=== PATIENT | female | born 1990 | race Caucasian/White ===

== ENCOUNTER → 2016-06-26 | Outpatient (CLI) | payer OTHER ==
[~2016-06-26] MED LIST: CIPR-225 PO; DOCU-143 PO; HYDR-3812 PO; METH20TA34 PO; METR500T PO
--- OUTSIDE RECORDS SUMMARY | 2016-06-26 12:04 | XMS REPORT ---
Author Author JP SAINI Organization [employer] Address Unknown Phone Unavailable Care Team Providers Care Road Inspector Name Role Phone JP SAINI CP Unavailable Allergies No Known Allergies Problems Problem Type Condition Code Onset Dates Condition Status Problem Sleep disorder, unspecified G47.9 Active Problem Oral contraceptive pill surveillance Z30.41 Active Problem BMI 32.0-32.9,adult Z68.32 Active Problem Family history of diabetes mellitus Z83.3 Active Problem Counseling for control, oral contraceptives Z30.9 Active Problem Other malaise R53.81 Active Problem History of genital warts Z86.19 Active Problem 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
--- NOTE | 2016-06-26 14:11 | Diagnostic Imaging Report ---
INDICATION: Irregular menstrual cycle. TECHNIQUE: Multiple real time chun scale sonographic images were obtained of the pelvis transabdominally and endovaginally. CORRELATION STUDY: None. FINDINGS: UTERUS/ENDOMETRIUM: Uterus measures 7.8 x 4.9 x 4.4 cm. The uterus has an unremarkable appearance. Endometrium is abnormally thickened even for a premenopausal patient at some areas greater than 2 cm. No significant increased vascularity. RIGHT OVARY: Not visualized, likely obscured by bowel. LEFT OVARY: 2.5 x 2.2 x 3.5 cm. Left ovary appearing unremarkable. Color flow is demonstrated to the left ovary. Trace free fluid in the cul-de-sac. IMPRESSION: 1. Endometrium is abnormally thickened. Etiology is indeterminate. Possibility of underlying polyp, hyperplasia, or even carcinoma should be excluded. Followup evaluation recommended. 2. Nonvisualization of the right ovary. Left ovary appearing unremarkable. Dictated by: Dictated on workstation # [id number]
== END ==
LOC: RAD 12:02
PROVIDERS: ATTEND Nurse Practitioner Family
DX: N92.6 Irregular menstruation, unspecified (principal)
CPT/HCPCS: 76830; 76856

== ENCOUNTER 2016-07-07 16:23 | Emergency (ER) | payer OTHER ==
[~2016-07-07] VITALS: Ht 182.9 cm; Wt 104.3 kg
--- NOTE | 2016-07-07 17:07 | ED Integumentary General ---
General Chief Complaint: Skin/Wound Problems Stated Complaint: POSS SPIDER BITE ON BACK Nursing Triage Note: Ambulatory to ED 8 with reports of possible wound/abscess to superior coccyx since Friday. Source: patient Exam Limitations: no limitations History of Present Illness Time seen by provider: 17:02 Initial Comments The patient is a 25-year-old white female who presents with the complaint of a painful and increasing in size nodule to the left side of the superior gluteal crease. This is been noted for about a week but has clearly increased in size and tenderness since Friday. Timing/Duration: week, getting worse Severity: mild Possible Cause: no cause identified Allergies and Home Medications Allergies Coded Allergies: Penicillins (Unverified Allergy, Unknown, 07/07/16) Constitutional: see HPI EENTM: no symptoms reported Respiratory: no symptoms reported Cardiovascular: no symptoms reported Gastrointestinal: no symptoms reported Genitourinary: no symptoms reported Musculoskeletal: no symptoms reported Skin: lesions Psychiatric/Neurological: No Symptoms Reported Endocrine: No Symptoms Reported Hematologic/Lymphatic: No Symptoms Reported Past Zykhslt-Cqclpp-Hrsuqk Hx Patient Social History Alcohol Use: Occasionally Uses Recreational Drug Use: No Smoking Status: Never a Smoker Recent Foreign Travel: No Contact w/Someone Who Travel: No Recent Infectious Disease Expo: No Recent Hopitalizations: No Physical Abuse Screen: No Sexual Abuse: No Immunizations Up To Date Tetanus Booster (TDap): Less than 5yrs PED Vaccines UTD: Yes Date of Influenza Vaccine: Jun 01, 2016 Seasonal Allergies Seasonal Allergies: No Surgeries HX Surgeries: No Respiratory Hx Respiratory Disorders: No Cardiovascular Hx Cardiac Disorders: No Neurological Hx Neurological Disorders: No Reproductive System Hx Reproductive Disorders: No Genitourinary Hx Genitourinary Disorders: No Gastrointestinal Hx Gastrointestinal Disorders: No Musculoskeletal Hx Musculoskeletal Disorders: No Endocrine Hx Endocrine Disorders: No HEENT HX ENT Disorders: No Cancer Hx Cancer: No Psychosocial Hx Psychiatric Problems: Yes Behavioral Health Disorders: ADD/ADHD Integumentary HX Skin/Integumentary Disorder: No Blood Transfusions Hx Blood Disorders: No Physical Exam Vital Signs Vital Sign - Last 12Hours 07/07/16 16:30 Temp 98.0 Pulse 89 Resp 18 B/P 137/92 Pulse Ox 97 O2 Delivery Room Air Capillary Refill : Less Than 3 Seconds General Appearance: WD/WN Cardiovascular: normal peripheral pulses regular rate, rhythm no edema no gallop no JVD no murmur Respiratory: chest non-tender lungs clear normal breath sounds no respiratory distress no accessory muscle use Comments There is an approximate 2 cm globally and elastic lesion which is tender to palpation in the left aspect of the superior gluteal crease Progress/Results/Core Measures Results/Orders Vital Signs/I&O Vital Sign - Last 12Hours 07/07/16 16:30 Temp 98.0 Pulse 89 Resp 18 B/P 137/92 Pulse Ox 97 O2 Delivery Room Air Blood Pressure Mean: 107 Departure Impression Impression: Primary Impression: pilonidal cyst Disposition: HOME, SELF-CARE Condition: Stable/Unchanged Departure-Patient Inst. Decision time for Depature: 17:05 Referrals: [facility] (PCP/Family) Primary Care Physician Patient Instructions: Pilonidal Cyst, Skin Schulte (DC) Add. Discharge Instructions: All discharge instructions reviewed with patient and/or family. Voiced understanding. An extra pillow or gel doughnut is useful for comfort. Soaking in a hot bathtub can be useful as well See surgeon of your choice for excision PETER STILL MD Jul 07, 2016 17:07
[2016-07-07 17:21] VITALS: BP 137/92
[2016-07-08] MEDS ORDERED: METR500T PO (09:16)
[2016-07-08] MEDS ORDERED: CIPR-225 PO (09:16)
[2016-07-08] MEDS ORDERED: HYDR-3812 PO (09:17)
[2016-07-25] MEDS ORDERED: HYDR-3812 PO (09:45)
[2016-07-25] MEDS ORDERED: DOCU-143 PO (09:45)
== END 2016-07-07 17:21 | disposition home or self-care (01) ==
LOC: EDUNIT# 16:23 → ER 16:25
DX: L05.01 Pilonidal cyst with abscess (principal)
CPT/HCPCS: 99281

== ENCOUNTER 2016-07-08 07:07 | Emergency (ER) | payer OTHER ==
[~2016-07-08] VITALS: Ht 182.9 cm; Wt 104.3 kg
[2016-07-08] MEDS ORDERED: LIDOCAINE/EPI 1%-1:100,000 (XYLOCAINE) 20ML INJ ONE (07:45)
[2016-07-08] MEDS ORDERED: KETOROLAC 30 MG/ML VIAL IVP ONE (07:45)
[2016-07-08] MEDS ORDERED: fentaNYL INJECTION 100 MCG/2 ML AMP IVP ONE (07:45)
--- NOTE | 2016-07-08 08:27 | ED General ---
General Chief Complaint: Skin/Wound Problems Stated Complaint: PILONIDAL CYST Nursing Triage Note: PT CO OF PILONIDAL CYST, PT HAS ALOT OF PAIN. Nursing Sepsis Screen: No Definite Risk Source of Information: Patient Exam Limitations: No Limitations History of Present Illness Time Seen by Provider: 07:25 Initial Comments This 25-year-old young lady presents to the emergency room with a pilonidal cyst. She was seen yesterday and was advised to seek referral to a surgeon. She was not started on antibiotics yesterday as the cyst was not felt to be infected. However, today it is obviously infected. Symptoms have worsened. There is erythema and a large area of fluctuation. She reports pain and size has worsened since yesterday as well. No fever. Allergies and Home Medications Allergies Coded Allergies: Penicillins (Unverified Allergy, Unknown, 07/07/16) Home Medications Ciprofloxacin HCl 500 Mg Tablet #20 500 MG PO BID Prescribed by: JOHNNY GAVIN on 07/08/16 0916 Hydrocodone/Acetaminophen 1 Each Tablet #10 1 EACH PO Q4H PRN PRN PAIN Prescribed by: JOHNNY GAVIN on 07/08/16 0917 Metronidazole 500 Mg Tablet #20 500 MG PO BID Prescribed by: JOHNNY GAVIN on 07/08/16 0916 Constitutional: no symptoms reported EENTM: no symptoms reported Respiratory: no symptoms reported Cardiovascular: no symptoms reported Gastrointestinal: no symptoms reported Genitourinary: no symptoms reported Musculoskeletal: no symptoms reported Skin: see HPI Psychiatric/Neurological: No Symptoms Reported Hematologic/Lymphatic: No Symptoms Reported Past Nrfrvqk-Qpbgru-Elyylh Hx Patient Social History Alcohol Use: Denies Use Recreational Drug Use: No Smoking Status: Never a Smoker Recent Foreign Travel: No Contact w/Someone Who Travel: No Recent Infectious Disease Expo: No Recent Hopitalizations: No Physical Abuse Screen: No Sexual Abuse: No Immunizations Up To Date Tetanus Booster (TDap): Less than 5yrs PED Vaccines UTD: Yes Date of Influenza Vaccine: Jun 01, 2016 Seasonal Allergies Seasonal Allergies: No Surgeries HX Surgeries: No Respiratory Hx Respiratory Disorders: No Cardiovascular Hx Cardiac Disorders: No Neurological Hx Neurological Disorders: No Reproductive System Hx Reproductive Disorders: No Female Reproductive Disorders: Polycystic Ovarian Dis Genitourinary Hx Genitourinary Disorders: No Gastrointestinal Hx Gastrointestinal Disorders: No Musculoskeletal Hx Musculoskeletal Disorders: No Endocrine Hx Endocrine Disorders: No HEENT HX ENT Disorders: No Cancer Hx Cancer: No Psychosocial Hx Psychiatric Problems: Yes Behavioral Health Disorders: ADD/ADHD Integumentary HX Skin/Integumentary Disorder: No Blood Transfusions Hx Blood Disorders: No Physical Exam Vital Signs Vital Sign - Last 12Hours 07/08/16 07:17 Temp 96.8 Pulse 88 Resp 18 B/P 123/93 Pulse Ox 99 Capillary Refill : Less Than 3 Seconds General Appearance: WD/WN Mild Distress HEENT: Normal ENT Inspection Respiratory: Lungs Clear Normal Breath Sounds No Accessory Muscle Use No Respiratory Distress Cardiovascular: Regular Rate, Rhythm No Edema No Murmur Extremity: Normal Inspection No Pedal Edema Neurologic/Psychiatric: Alert Oriented x3 No Motor/Sensory Deficits Normal Mood/Affect yeast maker II-XII Norm as Tested Skin: Normal Color Warm/Dry Other (Area of fullness is at least 3 cm in diameter at the top of the gluteal cleft. There is tenderness and erythema associated.) I&D : Blade Size: 11 Progress The skin was locally anesthetized with epinephrine with lidocaine. The skin was prepped with chlorhexidine. A 1 cm incision was made over the area of greatest fullness. A large amount of purulent material was expressed. Wound culture was obtained. Patient tolerated the procedure well. Progress/Results/Core Measures Results/Orders Lab Results My Orders Medications Given in ED Vital Signs/I&O Blood Pressure Mean: 103 Progress Note #1: Time: 08:05 Progress Note IV has been established and patient has been pretreated with Toradol and fentanyl. Incision and drainage under ultrasound guidance is anticipated. Serum test was negative. Progress Note #2: Progress Note Significant fluid collection was identified on bedside ultrasound. Incision and drainage was performed with local anesthesia. Wound culture was obtained. Cipro, Flagyl, and hydrocodone were administered orally prior to dismissal. Departure Impression Impression: Primary Impression: Pilonidal abscess Additional Impression: Encounter for incision and drainage procedure Disposition: 01 HOME, SELF-CARE Condition: Improved Departure-Patient Inst. Decision time for Depature: 09:05 Referrals: [facility] (PCP/Family) Primary Care Physician Patient Instructions: Abscess Incision and Drainage (DC), Pilonidal Cyst Add. Discharge Instructions: Do sitz baths and warm soapy water 2 or 3 times a day for 15-30 minutes until wound quits draining. You need to follow-up on the wound cultures with your primary care provider in 48 hours to ensure you are on appropriate antibiotic therapy. Seek referral to a surgeon as soon as possible. It may be advisable to have the cyst removed after the infection is under control. Return to care if symptoms worsen especially if you develop fever greater than 100. All discharge instructions reviewed with patient and/or family. Voiced understanding. Scripts Hydrocodone/Acetaminophen (Hydrocodon -Acetaminophen 5-325)1 Each Tablet1 Each PO Q4H PRN PAIN #10 TAB Prov:JOHNNY MENA MD 07/08/16 Metronidazole (Flagyl)500 Mg [id number] Mg PO BID #20 TAB Prov:JOHNNY MENA MD 07/08/16 Ciprofloxacin HCl (Cipro)500 Mg Cavgbw790 Mg PO BID #20 TAB Prov:JOHNNY MENA MD 07/08/16 Copy Copies To 1: JOAQUIN GOMES JOSHUA T MD Jul 08, 2016 08:27 Blood Pressure Mean: 103 Progress Note : Time: 08:05 Progress Note IV has been established and patient has been pretreated with Toradol and fentanyl. Incision and drainage under ultrasound guidance is anticipated. Serum test was negative. Departure Impression Impression: Primary Impression: Pilonidal abscess Additional Impression: Encounter for incision and drainage procedure Disposition: 01 HOME, SELF-CARE Condition: Improved Departure-Patient Inst. Decision time for Depature: 09:05 Referrals: [facility] (PCP/Family) Primary Care Physician Patient Instructions: Abscess Incision and Drainage (DC), Pilonidal Cyst Add. Discharge Instructions: Do sitz baths and warm soapy water 2 or 3 times a day for 15-30 minutes until wound quits draining. You need to follow-up on the wound cultures with your primary care provider in 48 hours to ensure you are on appropriate antibiotic therapy. Seek referral to a surgeon as soon as possible. It may be advisable to have the cyst removed after the infection is under control. Return to care if symptoms worsen especially if you develop fever greater than 100. All discharge instructions reviewed with patient and/or family. Voiced understanding. Scripts Hydrocodone/Acetaminophen (Hydrocodon -Acetaminophen 5-325)1 Each Tablet1 Each PO Q4H PRN PAIN #10 TAB Prov:JOHNNY MENA MD 07/08/16 Metronidazole (Flagyl)500 Mg [id number] Mg PO BID #20 TAB Prov:JOHNNY MENA MD 07/08/16 Ciprofloxacin HCl (Cipro)500 Mg [id number] Mg PO BID #20 TAB Prov:JOHNNY MENA MD 07/08/16 Copy Copies To 1: JOAQUIN GOMES JOSHUA T MD Jul 08, 2016 08:27
[2016-07-08] MEDS ORDERED: CIPROFLOXACIN 500 MG (CIPRO) TABLET PO ONE (09:15)
[2016-07-08] MEDS ORDERED: metroNIDAZOLE 500 MG (FLAGYL) TAB PO ONE (09:15)
[2016-07-08] MEDS ORDERED: METR500T PO (09:16)
[2016-07-08] MEDS ORDERED: CIPR-225 PO (09:16)
[2016-07-08] MEDS ORDERED: HYDR-3812 PO (09:17)
[2016-07-08] MEDS ORDERED: HYDROcodone/APAP 5 MG/325 MG (LORTAB) TAB PO ONE (09:30)
[2016-07-08 09:32] VITALS: BP 114/79
[2016-07-25] MEDS ORDERED: HYDR-3812 PO (09:45)
[2016-07-25] MEDS ORDERED: DOCU-143 PO (09:45)
== END 2016-07-08 09:35 | disposition home or self-care (01) ==
LOC: EDUNIT# 07:07 → ER 07:09
DX: L05.01 Pilonidal cyst with abscess (principal)
CPT/HCPCS: 36415; 84703; 87070; 87205; 96374; 96375

== ENCOUNTER 2016-07-24 10:05 | Outpatient (CLI) | payer OTHER ==
[~2016-07-24] VITALS: Ht 182.9 cm; Wt 110.7 kg
[~2016-07-24 10:05] MED LIST changes: -DOCU-143 PO; -METH20TA34 PO
[2016-07-24 10:13] VITALS: BP 131/77
[2016-07-24] MEDS ORDERED: METH20TA34 PO (10:17)
[2016-07-25] MEDS ORDERED: ceFAZolin 2 GM/NS 50 ML IV ONE (07:30)
[2016-07-25] MEDS ORDERED: CLINDAMYCIN 600 MG/50 ML IVPB 50 ML IV ONE (08:00)
[2016-07-25] MEDS ORDERED: HYDR-3812 PO (09:45)
[2016-07-25] MEDS ORDERED: DOCU-143 PO (09:45)
== END 2016-07-24 10:30 | disposition home or self-care (01) ==
LOC: PREOP 10:05
PROVIDERS: ATTEND Surgery
DX: Z01.818 Encounter for other preprocedural examination (principal); Z11.2 Encounter for screening for other bacterial diseases; L05.91 Pilonidal cyst without abscess
CPT/HCPCS: 84703; 87081

== ENCOUNTER 2016-07-25 07:19 | Day surgery (SDC) | payer OTHER ==
[~2016-07-25] VITALS: Ht 182.9 cm; Wt 110.7 kg
[~2016-07-25 07:19] MED LIST changes: +METH20TA34 PO
--- OUTSIDE RECORDS SUMMARY | 2016-07-25 07:23 | XMS REPORT | Continuity of Care Document ---
Author Author [facility] Organization [facility] Address Unknown Phone Unavailable Care Team Providers Care Predatory Hunter Name Role Phone [facility] Insurance Providers Payer Name Policy Number Subscriber Name Relationship [employer] [id number] Lucila Sykes Self / Same As Patient Self Pay Pending [facility] Apprv [id number] Lucila Sykes Self / Same As Patient Advance Directives Directive Response Recorded Date/Time Advance Directives No 07/24/16 10:13am Resuscitation Status Full Code 07/24/16 10:13am Problems Active Problems Medical Problem Onset Date Status Encounter for incision and drainage procedure Unknown Acute Pilonidal abscess Unknown Acute Medications Current Home Medications Medication Dose Units Route Directions Days/Qty Instructions Start Date Methylphenidate Hcl 20 Mg 20 Mg Oral Daily 07/24/16 Past Home Medications Medication Directions Ordered Status Ciprofloxacin Hcl 500 Mg Tablet, 500 Mg Oral Twice A Day 07/08/16 Discontinued Metronidazole 500 Mg Tablet, 500 Mg Oral Twice A Day 07/08/16 Discontinued Hydrocodone/Acetaminophen 1 Each Tablet, 1 Each Oral Every 4HRS as needed for Pain 07/08/16 Discontinued Social History Social History Problem Response Recorded Date/Time Alcohol Use Rarely Uses 07/24/2016 10:13am Recreational Drug Use No 07/24/2016 10:13am Recent Foreign Travel No 07/24/2016 10:13am Recent Infectious Disease Exposure No 07/24/2016 10:13am Smoking Status Never a Smoker 07/24/2016 10:13am Recent Hopitalizations No 07/24/2016 10:13am Query Response Start Date Stop Date Smoking Status Never a Smoker Hospital Discharge Instructions No hospital discharge instructions. Plan of Care Discharge Date 07/24/16 10:30am Prescriptions See Medication Section Functional Status No functional status results. Allergies, Adverse Reactions, Alerts Allergen Type Severity Reaction Status Last Updated Penicillins ([id number]) Allergy Unknown Active 07/07/16 Immunizations No immunization records. Vital Signs Acute Vital Signs Vital Response Date/Time Temperature (Fahrenheit) 96.8 degrees F (97.6 - 99.5) 07/08/2016 7:17am Temperature (Calculated Celsius) 36.64638 degrees C (36.4 - 37.5) 07/08/2016 7:17am Temperature Source Temporal 07/07/2016 5:21pm Pulse Rate (adult) 60 bpm (60 - 90) 07/24/2016 10:13am Respiratory Rate 18 bpm (12 - 24) 07/08/2016 9:32am O2 Sat by Pulse Oximetry 96 % (88 - 100) 07/24/2016 10:13am Blood Pressure 131/77 mm Hg 07/24/2016 10:13am Blood Pressure Mean 95 mm Hg 07/24/2016 10:13am Pain Numeric Pain Scale 0-No Pain 07/24/2016 10:13am Height (Feet) 6 feet 07/24/2016 10:13am Height (Inches) 0.00 inches 07/24/2016 10:13am Height (Calculated Centimeters) 182.652751 cm 07/24/2016 10:13am Weight (Pounds) 244 pounds 07/24/2016 10:13am Weight (Ounces) 0.0 oz 07/24/2016 10:13am Weight (Calculated Grams) 706493.54 gm 07/24/2016 10:13am Weight (Calculated Kilograms) 110.416523 kilograms 07/24/2016 10:13am Calculated BMI 33.1 07/24/2016 10:13am Capillary Refill Capillary Refill Less Than 3 Seconds 07/08/2016 7:17am Results Pending Microbiology Results Procedure Source Collection Date/Time Procedures No known history of procedures. Encounters Encounter Location Arrival/Admit Date Discharge/Depart Date Attending Provider Departed Clinic [facility] 07/24/16 10:05am 07/24/16 10: 30am VON DAVIS DO Departed Emergency Room [facility] 07/08/16 7:09am 07/08 9:35am JOHNNY MENA MD Departed Emergency Room [facility] 07/07/16 4:25pm 07/07 5:21pm PETER STILL MD Registered Clinic [facility] 06/26/16 12:02pm JESSICA MERCHANT APRN
--- OUTSIDE RECORDS SUMMARY | 2016-07-25 07:23 | XMS REPORT | Continuity of Care Document ---
Author Author [facility] Organization [facility] Address Unknown Phone Unavailable Care Team Providers Care Clean Up Worker Name Role Phone [facility] Insurance Providers Payer Name Policy Number Subscriber Name Relationship [employer] [id number] Lucila Sykes Self / Same As Patient Self Pay Pending [facility] Apprv [id number] Lucila Sykes Self / Same As Patient [...] Type Severity Reaction Status Last Updated Penicillins ([id number]) Allergy Unknown Active 07/07/16 Immunizations No immunization records. Vital Signs Acute Vital Signs Vital Response Date/Time Temperature (Fahrenheit) 96.8 degrees F (97.6 - 99.5) 07/08/2016 7:17am Temperature (Calculated Celsius) 36.16827 degrees C (36.4 - 37.5) 07/08/2016 7:17am [...] 0.00 inches 07/24/2016 10:13am Height (Calculated Centimeters) 182.962772 cm 07/24/2016 10:13am Weight (Pounds) 244 pounds 07/24/2016 10:13am Weight (Ounces) 0.0 oz 07/24/2016 10:13am Weight (Calculated Grams) 607788.54 gm 07/24/2016 10:13am Weight (Calculated Kilograms) 110.664398 kilograms 07/24/2016 10:13am Calculated BMI 33.1 07/24/2016 10:13am Capillary Refill Capillary Refill Less Than 3 Seconds 07/08/2016 7:17am Results Pending Microbiology Results Procedure Source Collection Date/Time Procedures No known history of procedures. Encounters Encounter Location Arrival/Admit Date Discharge/Depart Date Attending Provider Departed Clinic [facility] 07/24/16 10:05am 07/24/16 10: 30am VON DAVIS DO Departed Emergency Room [facility] 07/08/16 7:09am 07/08 9:35am JOHNNY MENA MD Departed Emergency Room [facility] 07/07/16 4:25pm 07/07 5:21pm PETER STILL MD Registered Clinic [facility] 06/26/16 12:02pm JESSICA MERCHANT APRN
[2016-07-25] MEDS ORDERED: ceFAZolin 2 GM/50 ML NS 0 ML IV ONE (07:31)
[2016-07-25] MEDS ORDERED: BUPIVACAINE 0.25% 30 ML (SENSORCAINE) VIAL ONE (07:32)
[2016-07-25] MEDS ORDERED: METHYLENE BLUE 1% INJ 1 ML AMP ONE (07:32)
[2016-07-25] MEDS ORDERED: LIDOCAINE 1% INJ 20 ML (XYLOCAINE) VIAL ONE (07:32)
[2016-07-25] MEDS ORDERED: CLINDAMYCIN 600 MG/50 ML IVPB 50 ML IV ONE ×2 (07:43→08:00)
[2016-07-25 07:46] VITALS: BP 121/90
[2016-07-25] MEDS ORDERED: LACTATED RINGERS 1,000 ML IV PRN (08:04)
[2016-07-25] MEDS ORDERED: proPOfol 200 MG/20 ML (DIPRIVAN) VIAL IV ONE (08:17)
[2016-07-25] MEDS ORDERED: fentaNYL INJECTION 100 MCG/2 ML AMP ONE ×2 (08:17→09:14)
[2016-07-25] MEDS ORDERED: MIDAZOLAM 2 MG/2 ML (VERSED) VIAL ONE (08:17)
[2016-07-25] MEDS ORDERED: ROCURONIUM 50 MG/5 ML (ZEMURON) VIAL IV ONE (08:17)
[2016-07-25] MEDS ORDERED: LACTATED RINGERS 1,000 ML IV ONE (08:53)
[2016-07-25] MEDS ORDERED: ONDANSETRON 4 MG/2 ML (SDV) Z0FRAN ONE (08:53)
--- NOTE | 2016-07-25 08:57 | Progress Note-Pre Operative ---
Pre-Operative Progress Note H&P Reviewed The H&P was reviewed, patient examined and no changes noted. Date H&P Reviewed: Jul 25, 2016 Time H&P Reviewed: 08:56 Pre-Operative Diagnosis: pilonidal cyst VON DAVIS DO Jul 25, 2016 08:56
--- NOTE | 2016-07-25 09:44 | Progress Note-Post Operative ---
Post-Operative Progess Note Pre-Operative Diagnosis pilonidal cyst Post-Operative Diagnosis same Post-Op Procedure Note Date of Procedure: Jul 25, 2016 Name of Procedure: excision pilonidal cyst [id number] Procedure Note/Findings see note Anesthesia Type general Estimated blood loss (mL): minimal Specimen(s) collected cyst VON DAVIS DO Jul 25, 2016 09:44
[2016-07-25] MEDS ORDERED: HYDR-3812 PO (09:45)
[2016-07-25] MEDS ORDERED: DOCU-143 PO (09:45)
[2016-07-25] MEDS ORDERED: HYDROcodone/APAP 5 MG/325 MG (LORTAB) TAB PO PRN (09:45)
--- NOTE | 2016-07-25 09:47 | Discharge Inst-Simple/Standard ---
Discharge Inst-Standard Discharge Medications New, Converted or Re-Newed RX: RX on Chart Patient Instructions/Follow Up Plan of Care/Instructions/FU: 12-14 days Tyson Activity as Tolerated: No Discharge Diet: Regular Diet Other Inst to Patient Follow up Appt: Make appointment for 12-14 days Instructions: No lifting greater than 10 pounds. No strenuous activity. May shower in 24 hours, no tub bath or soaking. Use incentive spirometer at home as directed. No Smoking Skin/Wound Care: May remove bandages in 24 hours. You have stitches on the outside. You can place 4x4 gauze over daily to help with comfort. Try to keep minimal pressure on wound. Symptoms to Report: Appetite Changes, Extremity Discoloration, Numbness/Tingling, Swelling Increased , Bleeding Excessive, Eyesight Changes, Pain Increased, Urine Color Change, Constipation(Persistent), Fever over 101 degree F, Pain/Pressure in chest, Urinating Difficulty, Cough Up/Vomit Blood, Heart Beat Irreg/Pounding, Pain/ Pressure in jaw, Vaginal Bleeding Increase, Cramps in feet or legs, Lightheadedness, Pain/Pressure in shoulder, Diarrhea(Persistent), Memory Changes Suddenly, Questions/Concerns, Weight gain consecutive days, Dizziness/ Fainting, Nausea/Vomiting, Shortness of Breath, Weight gain over 2 pounds If questions or concerns contact your physician Or seek help at emergency department. VON DAVIS DO Jul 25, 2016 09:47
[2016-07-25 10:50] VITALS: BP 122/54
[2016-07-25 11:20] VITALS: BP 92/49
[2016-07-25 11:45] VITALS: BP 92/49
--- NOTE | 2016-07-26 13:49 | OPERATIVE REPORT ---
PROCEDURE PHYSICIAN: VON DAVIS DATE OF PROCEDURE: 07/25/2016 PREOPERATIVE DIAGNOSIS: Pilonidal cyst. POSTOPERATIVE DIAGNOSIS: Pilonidal cyst. PROCEDURE: Excision or pilonidal cyst 6.5 x 3 x 4 cm. SURGEON: Tyson. ANESTHESIA: General. ESTIMATED BLOOD LOSS: Minimal. COMPLICATIONS: None. INDICATIONS: The patient is a 25-year-old female who had a pilonidal cyst which had been previously incised and drain. The patient understands the risks and benefits of the procedure and wished to proceed with procedure. Consent was signed on the chart. PROCEDURE: The patient was taken operating suite. She was prepped and draped in sterile fashion. A surgical pause was performed. Elliptical incision around the palpable cyst where it was previously incised was made. Cautery was used to dissect around this area down to the sacral fascia and removed overall measurements measuring 6.5 x 3 x 4 cm. There is still an area that appeared to be possibly cystic which was grasped and removed as well using cautery dissection. Once removed, the wound was then irrigated with copious amounts of irrigation. Local anesthetic was infiltrated as well. The skin was then closed using 2-0 Prolene sutures in a vertical mattress fashion. The area was then washed and dried and sterile bandage was applied. The patient tolerated the procedure well without any complications. She was taken to recovery in stable condition. Job ID: [id number] Dictated Date: 07/25/2016 14:25:36 Buzzsaw Operator Helper Date: 07/26/2016 13:43:51 / rosio
== END 2016-07-25 11:45 | disposition home or self-care (01) ==
LOC: SDC 07:19
PROVIDERS: ATTEND Surgery
DX: L05.91 Pilonidal cyst without abscess (principal)
CPT/HCPCS: 88304

== ENCOUNTER 2016-11-04 01:21 | Emergency (ER) | payer OTHER ==
[~2016-11-04] VITALS: Ht 182.9 cm; Wt 106.6 kg
[~2016-11-04 01:21] MED LIST changes: +DOCU-143 PO
[2016-11-04 02:34] LABS: BASOPHILS # (AUTO) 0.1 10^3/uL (0.0-0.1); BASOPHILS % (AUTO) 1 % (0-10); EOSINOPHILS # (AUTO) 0.4 10^3/uL (0.0-0.3); EOSINOPHILS % (AUTO) 3 % (0-10); LYMPHOCYTES % (AUTO) 26 % (12-44); MEAN CORPUSCULAR HEMOGLOBIN 26 PG (25-34); MEAN CORPUSCULAR HGB CONC 31 G/DL (32-36); MEAN CORPUSCULAR VOLUME 84 FL (80-99); MEAN PLATELET VOLUME 9.1 FL (7.4-10.4); MONOCYTES # (AUTO) 1.4 X 10^3 (0.0-1.0); MONOCYTES % (AUTO) 9 % (0-12); NEUTROPHILS # (AUTO) 9.6 X 10^3 (1.8-7.8); NEUTROPHILS % (AUTO) 62 % (42-75); PLATELET COUNT 457 10^3/uL (130-400); RED BLOOD COUNT 4.36 10^6/uL (4.35-5.85); RED CELL DISTRIBUTION WIDTH 13.8 % (10.0-14.5); WHITE BLOOD COUNT 15.5 10^3/uL (4.3-11.0)
--- NOTE | 2016-11-04 02:40 | ED GU-Female ---
General Chief Complaint: -Female Stated Complaint: VAG BLEEDING Nursing Triage Note: LMP ended 10/24; started bleeding again 11/02 and having increased bleeding starting 1900 this evening saturating through a tampon every 1-2 hours. pt reports having irregular periods in the past but never bleeding like this. also reports taking plan b last friday after sexual intercourse. Nursing Sepsis Screen: No Definite Risk Source: patient History of Present Illness Time seen by provider: 01:50 Initial Comments PT STATES SHE HAS HAD "IRREGULAR PERIODS" FOR OVER A YEAR, SINCE SHE STOPPED TAKING CONTROL --HAS HAD ULTRASOUND AND ENDOMETRIAL BIOPSY PT STATES SHE HAD A NORMAL PERIOD ON 09/21 AND THEN AGAIN 10/18-10/24 STATES SHE HAD UNPROTECTED SEX ON 10/26 AND TOOK "PLAN B" ON 10/28, THEN STARTED BLEEDING ON 11/02--STARTED OUT LIKE NORMAL PERIOD, BUT TONIGHT AROUND 1900, THE BLEEDING HAS BECOME HEAVIER--SAYS THAT SHE HAS GONE THROUGH 7 TAMPONS TODAY STATES SHE HAS USED PLAN B IN THE PAST AND DID NOT HAVE HEAVY BLEEDING LIKE THIS C/O SLIGHT LOWER ABDOMINAL CRAMPING AND SORENESS/PRESSURE--NORMAL FOR PT NO DIZZINESS NO BACK PAIN PCP: [facility], SAW LUI MERCHANT THE FIRST PART OF SEPTEMBER FOR FOLLOW UP FOR TEST RESULTS FOR THIS PROBLEM Allergies and Home Medications Allergies Coded Allergies: Penicillins (Unverified Allergy, Unknown, 07/07/16) Home Medications Methylphenidate HCl 20 Mg Tablet, 20 MG PO DAILY, (Reported) Constitutional: no symptoms reported Respiratory: no symptoms reported Cardiovascular: no symptoms reported Gastrointestinal: see HPI, No nausea, No vomiting Genitourinary: see HPI : No Musculoskeletal: no symptoms reported Skin: no symptoms reported Psychiatric/Neurological: No Symptoms Reported Endocrine: No Symptoms Reported Hematologic/Lymphatic: See HPI Past Vbquirs-Xoivfi-Gegzxf Hx Patient Social History Alcohol Use: Occasionally Uses Recreational Drug Use: Yes Drug of Choice: Marijuana Smoking Status: Never a Smoker 2nd Hand Smoke Exposure: No Recent Foreign Travel: No Contact w/Someone Who Travel: No Recent Infectious Disease Expo: No Recent Hopitalizations: No Immunizations Up To Date Tetanus Booster (TDap): Less than 5yrs PED Vaccines UTD: Yes Date of Influenza Vaccine: Jun 01, 2016 Seasonal Allergies Seasonal Allergies: No Surgeries HX Surgeries: Yes (PILONIDAL CYST/ABSCESS REMOVED) Respiratory Hx Respiratory Disorders: No Cardiovascular Hx Cardiac Disorders: No Neurological Hx Neurological Disorders: No Reproductive System : No Hx Reproductive Disorders: Yes (IRREGULAR PERIODS) Female Reproductive Disorders: Menstrual Problems, Polycystic Ovarian Dis Genitourinary Hx Genitourinary Disorders: No Gastrointestinal Hx Gastrointestinal Disorders: No Musculoskeletal Hx Musculoskeletal Disorders: No (HX LEFT ARM FX) Musculoskeletal Disorders: Fractures Endocrine Hx Endocrine Disorders: No HEENT HX ENT Disorders: No Cancer Hx Cancer: No Psychosocial Hx Psychiatric Problems: Yes Behavioral Health Disorders: ADD/ADHD Integumentary HX Skin/Integumentary Disorder: No Blood Transfusions Hx Blood Disorders: No Physical Exam Vital Signs Vital Sign - Last 12Hours 11/04/16 01:35 Temp 98.4 Pulse 99 Resp 18 B/P (MAP) 121/93 Pulse Ox 97 O2 Delivery Room Air Capillary Refill : Less Than 3 Seconds General Appearance: WD/WN, no apparent distress, other (DIRTY, MALODOROUS. DOES NOT APPEAR TO BE IN ANY DISCOMFORT--WALKS UPRIGHT AND MOVES QUICKLY WITHOUT DIFFICULTY) Neck: normal inspection Cardiovascular: regular rate, rhythm, no murmur Respiratory: normal breath sounds, no respiratory distress, no accessory muscle use Gastrointestinal: normal bowel sounds, soft, no organomegaly, no pulsatile mass , No distended, No guarding, No rebound, tenderness (MILD SUPRAPUBIC TENDERNESS) , No hernia, No mass Back: normal inspection Extremities: normal inspection Neurologic/Psychiatric: crust sorter II-XII nml as tested, no motor/sensory deficits, alert, normal mood/affect, oriented x 3 Skin: normal color, warm/dry Progress/Results/Core Measures Results/Orders Lab Results Laboratory Tests Test 11/04/16 02:23 11/04/16 02:29 Range/Units Urine Color EDDIE H Urine Clarity VERY CLOUDY H Urine pH 5 5-9 Urine Specific [place] 1.025 H 1.016-1.022 Urine Protein 2+ H NEGATIVE Urine Glucose (UA) NEGATIVE NEGATIVE Urine Ketones NEGATIVE NEGATIVE Urine Nitrite NEGATIVE NEGATIVE Urine Bilirubin NEGATIVE NEGATIVE Urine Urobilinogen NORMAL NORMAL MG/DL Urine Leukocyte Esterase 1+ H NEGATIVE Urine RBC (Auto) 5+ H NEGATIVE Urine RBC TNTC H /HPF Urine WBC 0-2 /HPF Urine Squamous Epithelial Cells 0-2 /HPF Urine Crystals NONE /LPF Urine Bacteria TRACE /HPF Urine Casts NONE /LPF Urine Mucus NEGATIVE /LPF Urine Culture Indicated NO White Blood Count 15.5 H 4.3-11.0 10^3/uL Red Blood Count 4.36 4.35-5.85 10^6/uL Hemoglobin 11.4 L 11.5-16.0 G/DL Hematocrit 36 35-52 % Mean Corpuscular Volume 84 80-99 FL Mean Corpuscular Hemoglobin 26 25-34 PG Mean Corpuscular Hemoglobin Concent 31 L 32-36 G/DL Red Cell Distribution Width 13.8 10.0-14.5 % Platelet Count 457 H 130-400 10^3/uL Mean Platelet Volume 9.1 7.4-10.4 FL Neutrophils (%) (Auto) 62 42-75 % Lymphocytes (%) (Auto) 26 12-44 % Monocytes (%) (Auto) 9 0-12 % Eosinophils (%) (Auto) 3 0-10 % Basophils (%) (Auto) 1 0-10 % Neutrophils # (Auto) 9.6 H 1.8-7.8 X 10^3 Lymphocytes # (Auto) 4.0 1.0-4.0 X 10^3 Monocytes # (Auto) 1.4 H 0.0-1.0 X 10^3 Eosinophils # (Auto) 0.4 H 0.0-0.3 10^3/uL Basophils # (Auto) 0.1 0.0-0.1 10^3/uL Neutrophils % (Manual) 66 % Lymphocytes % (Manual) 20 % Monocytes % (Manual) 12 % Eosinophils % (Manual) 2 % Blood Morphology Comment NORMAL Sodium Level 139 135-145 MMOL/L Potassium Level 3.7 3.6-5.0 MMOL/L Chloride Level 109 H 98-107 MMOL/L Carbon Dioxide Level 19 L 21-32 MMOL/L Anion Gap 11 5-14 MMOL/L Blood Urea Nitrogen 17 7-18 MG/DL Creatinine 0.91 0.60-1.30 MG/DL Estimat Glomerular Filtration Rate > 60 BUN/Creatinine Ratio 19 Glucose Level 138 H 70-105 MG/DL Calcium Level 8.8 8.5-10.1 MG/DL Serum Test, Qualitative NEGATIVE NEGATIVE My Orders Orders - HAO,CHELSEY K DO Saline Lock/Iv-Start (11/04/16 01:53) Orthostatic Vital Signs (11/04/16 01:53) Basic Metabolic Panel (11/04/16 01:53) Cbc With Automated Diff (11/04/16 01:53) Hcg,Qualitative Serum (11/04/16 01:53) Manual Differential (11/04/16 02:29) Ua Culture If Indicated (11/04/16 02:40) Vital Signs/I&O Vital Sign - Last 12Hours 11/04/16 11/04/16 11/04/16 01:35 02:13 03:14 Temp 98.4 97.6 Pulse 99 105 98 112 98 Resp 18 18 B/P (MAP) 121/93 Pulse Ox 97 98 O2 Delivery Room Air Blood Pressure Mean: 102 Progress Note : Progress Note PT STATES SHE CHANGED TAMPON ONCE DURING ER STAY HAS NOT BLED THROUGH CLOTHING UNEVENTFUL ER STAY Departure Impression Impression: Primary Impression: Abnormal uterine bleeding Disposition: 01 HOME, SELF-CARE Condition: Stable Departure-Patient Inst. Referrals: [facility] (PCP/Family) Primary Care Physician Patient Instructions: IRREGULAR VAGINAL BLEEDING Add. Discharge Instructions: KEEP AND ACCURATE PAD/TAMPON COUNT--FOLLOW UP WITH YOUR DR IF YOU ARE SOAKING MORE THAN 1 MAXI PAD OR SUPER TAMPON AN HOUR BY EARLY AFTERNOON RETURN TO ER IF WORSE TYLENOL AND MOTRIN NEEDED FOR PAIN All discharge instructions reviewed with patient and/or family. Voiced understanding. CHELSEY BUI DO November 04, 2016 02:40
[2016-11-04 02:44] LABS: BILIRUBIN,URINE NEGATIVE (NEGATIVE); KETONES,URINE NEGATIVE (NEGATIVE); LEUKOCYTE ESTERASE ,URINE 1+ (NEGATIVE); NITRITE,URINE NEGATIVE (NEGATIVE); PH,URINE 5 (5-9); PROTEIN,URINE 2+ (NEGATIVE); UROBILINOGEN,URINE NORMAL (NORMAL)
[2016-11-04 02:49] LABS: ANION GAP 11 MMOL/L (5-14); BLOOD UREA NITROGEN 17 MG/DL (7-18); BUN/CREATININE RATIO 19; CALCIUM 8.8 MG/DL (8.5-10.1); CARBON DIOXIDE 19 MMOL/L (21-32); CHLORIDE 109 MMOL/L (98-107); CREATININE SERUM 0.91 MG/DL (0.60-1.30); GFR ESTIMATED > 60; GLUCOSE 138 MG/DL (70-105); POTASSIUM 3.7 MMOL/L (3.6-5.0); SODIUM 139 MMOL/L (135-145)
[2016-11-04 02:53] LABS: SQUAMOUS EPITHELIAL CELL,UR 0-2 /HPF; WBC,URINE 0-2 /HPF
[2016-11-04 03:04] LABS: EOSINOPHILS % (MANUAL) 2 %; LYMPHOCYTES % (MANUAL) 20 %; NEUTROPHILS % (MANUAL) 66 %
[2016-11-04 03:14] VITALS: BP 100/63
[2016-11-04] MEDS ORDERED: NORG1TAB14 PO (14:32)
[2016-11-04] MEDS ORDERED: IBUP-1780 PO (15:09)
== END 2016-11-04 03:15 | disposition home or self-care (01) ==
LOC: EDUNIT# 01:21 → ER 01:24
DX: N93.9 Abnormal uterine and vaginal bleeding, unspecified (principal)
CPT/HCPCS: 36415; 80048; 81000; 84703; 85007; 85027; 99282

== ENCOUNTER 2016-11-04 11:46 | Emergency (ER) | payer OTHER ==
[~2016-11-04] VITALS: Ht 182.9 cm; Wt 106.6 kg
[2016-11-04 12:55] VITALS: BP 118/74
[2016-11-04 13:50] LABS: BASOPHILS # (AUTO) 0.1 10^3/uL (0.0-0.1); BASOPHILS % (AUTO) 1 % (0-10); EOSINOPHILS # (AUTO) 0.3 10^3/uL (0.0-0.3); EOSINOPHILS % (AUTO) 3 % (0-10); LYMPHOCYTES # (AUTO) 3.2 X 10^3 (1.0-4.0); LYMPHOCYTES % (AUTO) 25 % (12-44); MEAN CORPUSCULAR HEMOGLOBIN 26 PG (25-34); MEAN CORPUSCULAR HGB CONC 31 G/DL (32-36); MEAN CORPUSCULAR VOLUME 83 FL (80-99); MEAN PLATELET VOLUME 8.9 FL (7.4-10.4); MONOCYTES # (AUTO) 1.2 X 10^3 (0.0-1.0); MONOCYTES % (AUTO) 10 % (0-12); NEUTROPHILS % (AUTO) 62 % (42-75); PLATELET COUNT 449 10^3/uL (130-400); RED BLOOD COUNT 4.48 10^6/uL (4.35-5.85); RED CELL DISTRIBUTION WIDTH 13.6 % (10.0-14.5); WHITE BLOOD COUNT 12.9 10^3/uL (4.3-11.0)
--- NOTE | 2016-11-04 13:54 | ED GU-Female ---
General Chief Complaint: -Female Stated Complaint: IRREGULAR MENSTRUAL BLEEDING Nursing Triage Note: PT C/O VAGINAL BLEEDING. SHE WAS SEEN AND TX IN THIS ED THIS AM AND SHE REPORTS NO IMPROVEMENT. Nursing Sepsis Screen: No Definite Risk Source: patient Exam Limitations: no limitations History of Present Illness Time seen by provider: 13:53 Initial Comments To ER with vaginal bleeding. This began heavily on the that she's been bleeding for 3 or 4 days preceding that moderately. She took a Plan B pill on the eighth of this month 2 days after unprotected sex. Last menstrual period was normal was the beginning of October. She is a nonsmoker with no history of DVT. She was seen here last night for the symptoms. She reports the bleeding has persisted with the need to change her tampon every hour since 2 a.m. last night. Timing/Duration: constant Severity/Quality: moderate Radiation: none Activities at Onset: none Prior Genitourinary Problems: none Associated Symptoms: denies symptoms Allergies and Home Medications Allergies Coded Allergies: Penicillins (Unverified Allergy, Unknown, 07/07/16) Home Medications Methylphenidate HCl 20 Mg Tablet, 20 MG PO DAILY, (Reported) Constitutional: see HPI EENTM: see HPI Respiratory: no symptoms reported Cardiovascular: no symptoms reported Genitourinary: no symptoms reported Musculoskeletal: no symptoms reported Skin: no symptoms reported Psychiatric/Neurological: No Symptoms Reported Endocrine: No Symptoms Reported Hematologic/Lymphatic: No Symptoms Reported Past Nmmseei-Jrrqha-Umsemx Hx Patient Social History Alcohol Use: Denies Use Recreational Drug Use: Yes Drug of Choice: Marijuana Smoking Status: Never a Smoker 2nd Hand Smoke Exposure: No Recent Foreign Travel: No Contact w/Someone Who Travel: No Recent Infectious Disease Expo: No Recent Hopitalizations: No Immunizations Up To Date Tetanus Booster (TDap): Less than 5yrs PED Vaccines UTD: Yes Date of Influenza Vaccine: Jun 01, 2016 Seasonal Allergies Seasonal Allergies: No Surgeries HX Surgeries: Yes (PILONIDAL CYST/ABSCESS REMOVED) Respiratory Hx Respiratory Disorders: No Cardiovascular Hx Cardiac Disorders: No Neurological Hx Neurological Disorders: No Reproductive System Hx Reproductive Disorders: Yes (IRREGULAR PERIODS) Female Reproductive Disorders: Menstrual Problems, Polycystic Ovarian Dis Genitourinary Hx Genitourinary Disorders: No Gastrointestinal Hx Gastrointestinal Disorders: No Musculoskeletal Hx Musculoskeletal Disorders: No (HX LEFT ARM FX) Musculoskeletal Disorders: Fractures Endocrine Hx Endocrine Disorders: No HEENT HX ENT Disorders: No Cancer Hx Cancer: No Psychosocial Hx Psychiatric Problems: Yes Behavioral Health Disorders: ADD/ADHD Integumentary HX Skin/Integumentary Disorder: No Blood Transfusions Hx Blood Disorders: No Physical Exam Vital Signs Vital Sign - Last 12Hours 11/04/16 12:55 Temp 97.2 Pulse 95 Resp 16 B/P (MAP) 118/74 Capillary Refill : Less Than 3 Seconds General Appearance: WD/WN, no apparent distress HEENT: PERRL/EOMI, normal ENT inspection Neck: non-tender, full range of motion Respiratory: normal breath sounds, no respiratory distress, no accessory muscle use Gastrointestinal: normal bowel sounds, non tender, soft Pelvic: normal external exam, discharge (Small amount of vaginal bleeding from the cervix-dark blood, slow ooze. no vaginal lacerations or bleeding. ) Neurologic/Psychiatric: alert, normal mood/affect, oriented x 3 Skin: normal color, warm/dry (of the patellar and) Progress/Results/Core Measures Results/Orders Lab Results Laboratory Tests Test 11/04/16 13:40 Range/Units White Blood Count 12.9 H 4.3-11.0 10^3/uL Red Blood Count 4.48 4.35-5.85 10^6/uL Hemoglobin 11.7 11.5-16.0 G/DL Hematocrit 37 35-52 % Mean Corpuscular Volume 83 80-99 FL Mean Corpuscular Hemoglobin 26 25-34 PG Mean Corpuscular Hemoglobin Concent 31 L 32-36 G/DL Red Cell Distribution Width 13.6 10.0-14.5 % Platelet Count 449 H 130-400 10^3/uL Mean Platelet Volume 8.9 7.4-10.4 FL Neutrophils (%) (Auto) 62 42-75 % Lymphocytes (%) (Auto) 25 12-44 % Monocytes (%) (Auto) 10 0-12 % Eosinophils (%) (Auto) 3 0-10 % Basophils (%) (Auto) 1 0-10 % Neutrophils # (Auto) 8.0 H 1.8-7.8 X 10^3 Lymphocytes # (Auto) 3.2 1.0-4.0 X 10^3 Monocytes # (Auto) 1.2 H 0.0-1.0 X 10^3 Eosinophils # (Auto) 0.3 0.0-0.3 10^3/uL Basophils # (Auto) 0.1 0.0-0.1 10^3/uL My Orders Orders - WILLIAM W[place] APRN Cbc With Automated Diff (11/04/16 13:33) Us Pelvic (Non Ob)58125 (11/04/16 14:36) Vital Signs/I&O Vital Sign - Last 12Hours 11/04/16 12:55 Temp 97.2 Pulse 95 Resp 16 B/P (MAP) 118/74 Blood Pressure Mean: 89 Departure Communication Progress Notes 1418-discussed the case with Dr. Martinez. Referred her to primary care. 1433-patient had a negative test, hours ago here. Her hemoglobin is stable. She does not wish to conceive. Impression Impression: Primary Impression: Menorrhagia Disposition: 01 HOME, SELF-CARE Condition: Stable Departure-Patient Inst. Decision time for Depature: 14:10 Referrals: [facility] (PCP/Family) Primary Care Physician JAE SOLIS ERIN N MD SHAW, ANGELA C DO Patient Instructions: Menstruation Add. Discharge Instructions: 1. Call the obstetricians of your choosing 2. Return to ER for any concerns 3. All discharge instructions reviewed with patient and/or family. Voiced understanding. Scripts Ibuprofen (Ibuprofen) 800 Mg Tablet 800 MG PO Q8H Y for PAIN, #30 TAB Prov: WILLIAM W[place] APRN 11/04/16 WILLIAM W[place] APRN November 04, 2016 13:54
[2016-11-04] MEDS ORDERED: NORG1TAB14 PO (14:32)
[2016-11-04] MEDS ORDERED: IBUP-1780 PO (15:09)
--- NOTE | 2016-11-04 15:57 | Diagnostic Imaging Report ---
Transabdominal and transvaginal pelvic ultrasound. INDICATION: Heavy bleeding for a few days. The patient has had unprotected sex about one week earlier and had taken Plan B pill two days ago. COMPARISON: 06/26/2016. FINDINGS: The uterus is 7.7 x 4.2 x 4.8 cm. The endometrial stripe is 9 mm in thickness and is hypervascular. Note is made of endometrial thickening on 06/26/2016 exam. The hypervascularity in light of history of endometrial thickening indicates underlying endometrial lesion such as polyp, hyperplasia, or cancer; however, the picture is complicated with the provided history as above and retained products from aborted decidual reaction of could be considered. The left ovary is 3.7 x 2.3 x 1.8 cm. Venous and arterial waveforms are demonstrated over the left ovary. The right ovary is obscured by bowel gas. There is a small amount of free fluid in the pelvis. IMPRESSION: Abnormal hypervascularity in the endometrium is seen. The patient has had thickened endometrium in June 2016 exam. Correlate for possible underlying polyp, hyperplasia or less likely malignancy at the patient's age. Based on the provided history, retained products of aborted early decidual reaction could be considered. Gynecology evaluation with follow-up beta-hCG and ultrasound evaluation is recommended. The findings are discussed with Femi Alicea, ER physician assistant professor in family studies, at the time of the dictation. Dictated by: Dictated on workstation # [id number]
== END 2016-11-04 15:46 | disposition home or self-care (01) ==
LOC: EDUNIT# 11:46 → ER 11:48
DX: N92.0 Excessive and frequent menstruation with regular cycle (principal)
CPT/HCPCS: 36415; 76830; 76856; 85025; 99282

== ENCOUNTER 2017-03-26 13:49 | Emergency (ER) | payer SELFPAY ==
[~2017-03-26] VITALS: Ht 182.9 cm; Wt 108.9 kg
[~2017-03-26 13:49] MED LIST changes: +IBUP-1780 PO; +NORG1TAB14 PO
--- OUTSIDE RECORDS SUMMARY | 2017-03-26 13:56 | XMS REPORT ---
Author Author Eliza CONSTANTINO Organization [facility] [place] Address [address] [place] [address] Care Team Providers Care Clerical Assigner Name Role Phone Eliza CONSTANTINO Unavailable PROBLEMS Type Condition ICD9-CM Code [id number] Code Onset Dates Condition Status SNOMED Code Problem Counseling for control, oral contraceptives Z30.9 Active 800951989 Problem Elevated hemoglobin A1c R73.09 Active 640797923 Problem Attention deficit disorder without mention of hyperactivity F90.0 Active 751972236 Problem Sleep disorder, unspecified G47.9 Active 11015646 Problem Other malaise R53.81 Active 101393356 Problem Abnormal menstrual periods N92.6 Active 495854923 Problem Acanthosis nigricans L83 Active 330930828 Problem Hair thinning L65.9 Active 214793721 Problem Oral contraceptive pill surveillance Z30.41 Active 247544929 Problem Irregular menstrual bleeding N92.6 Active 41882835 Problem Obesity (BMI 30-39.9) E66.9 Active 804055482 ALLERGIES Substance Reaction Event Type Date Status Penicillin V Potassium Unknown Drug Allergy May, Active SOCIAL HISTORY No smoking Hx information available PLAN OF CARE Activity Details Follow Up 3 Months Reason: VITAL SIGNS Height 72 in 2016-06-06 Weight 244.5 lbs 2016-06-06 Heart Rate 84 bpm 2016-06-06 Respiratory Rate 20 2016-06-06 BMI 33.16 kg/m2 2016-06-06 Blood pressure systolic 130 mmHg 2016-06-06 Blood pressure diastolic 84 mmHg 2016-06-06 MEDICATIONS Medication Instructions Dosage Frequency Start Date End Date Duration Status Methylphenidate HCl 20 mg Orally Twice a day 1 tablet 12h May, Active RESULTS No Results PROCEDURES Procedure Date Ordered Related Diagnosis Body Site MH Office Visit, Est Pt., Level 3 Jun 06, 2016 IMMUNIZATIONS No Known Immunizations
--- OUTSIDE RECORDS SUMMARY | 2017-03-26 13:56 | XMS REPORT ---
Author Author CONSTANTINO Kay Organization [facility] Address [address] [place] [address] Care Team Providers Care Farmworker Grain Name Role Phone CONSTANTINO Kay Unavailable PROBLEMS Type Condition ICD9-CM Code [id number] Code Onset Dates Condition Status SNOMED Code Problem Counseling for control, oral contraceptives Z30.9 Active 110733163 Problem Sleep disorder, unspecified G47.9 Active 01568707 Problem Elevated hemoglobin A1c R73.09 Active 664460626 Problem Other malaise R53.81 Active 101614334 Problem Attention deficit disorder without mention of hyperactivity F90.0 Active 153805661 Problem Abnormal menstrual periods N92.6 Active 568225354 Problem Irregular menstrual bleeding N92.6 Active 58120285 Problem Hair thinning L65.9 Active 028025092 Problem Oral contraceptive pill surveillance Z30.41 Active 434986399 Problem Acanthosis nigricans L83 Active 889664395 Problem Obesity (BMI 30-39.9) E66.9 Active 025482107 ALLERGIES No Information SOCIAL HISTORY Never Assessed PLAN OF CARE VITAL SIGNS MEDICATIONS Medication Instructions Dosage Frequency Start Date End Date Duration Status Methylphenidate HCl 20 mg Orally Twice a day 1 tablet 12h 13 Aug, 2016 28 days Active RESULTS No Results PROCEDURES No Known procedures IMMUNIZATIONS No Known Immunizations MEDICAL (GENERAL) HISTORY Type Description Date Medical History ADHD Medical History History of genital warts Medical History Family history of diabetes mellitus Medical History Family history of [place]'s chorea Medical History Family history of heart disease Surgical History pilonidal cyst excision jun 2016
--- OUTSIDE RECORDS SUMMARY | 2017-03-26 13:56 | XMS REPORT ---
Author Author SHONDA JESSICA Organization [facility] Address [address] [place] [address] Care Team Providers Care Residential Real Estate Agent Name Role Phone MERCHANTJESSICA Moore Unavailable PROBLEMS Type Condition ICD9-CM Code [id number] Code Onset Dates Condition Status SNOMED Code Problem Counseling for control, oral contraceptives Z30.9 Active 228823751 Problem Sleep disorder, unspecified G47.9 Active 56779101 Problem Elevated hemoglobin A1c R73.09 Active 674808659 Problem Other malaise R53.81 Active 274398815 Problem Attention deficit disorder without mention of hyperactivity F90.0 Active 980010216 Problem Abnormal menstrual periods N92.6 Active 095509702 Problem Irregular menstrual bleeding N92.6 Active 40856392 Problem Hair thinning L65.9 Active 981246171 Problem Oral contraceptive pill surveillance Z30.41 Active 360154790 Problem Acanthosis nigricans L83 Active 515410926 Problem Obesity (BMI 30-39.9) E66.9 Active 720434867 ALLERGIES Substance Reaction Event Type Date Status Penicillin V Potassium Unknown Drug Allergy Jun, Active SOCIAL HISTORY No smoking Hx information available PLAN OF CARE Activity Details Follow Up 3 Months Reason: VITAL SIGNS Height 72 in 2016-07-16 Weight 245.0 lbs 2016-07-16 Temperature 98.0 degrees Fahrenheit 2016-07-16 Heart Rate 80 bpm 2016-07-16 Respiratory Rate 20 2016-07-16 BMI 33.22 kg/m2 2016-07-16 Blood pressure systolic 120 mmHg 2016-07-16 Blood pressure diastolic 78 mmHg 2016-07-16 MEDICATIONS Medication Instructions Dosage Frequency Start Date End Date Duration Status Methylphenidate HCl 20 mg Orally Twice a day 1 tablet 12h 10 Jun, 2016 28 days Active Cipro 500 MG Orally Twice a day 1 tablet 12h Active RESULTS No Results PROCEDURES Procedure Date Ordered Related Diagnosis Body Site Office Visit, Est Pt., Level 3 Jul 16, 2016 IMMUNIZATIONS No Known Immunizations
--- OUTSIDE RECORDS SUMMARY | 2017-03-26 13:56 | XMS REPORT ---
Author Author CALEB NDIAYE Organization [facility] Address [address] [place] [address] Care Team Providers Care Packing Machine Pilot Can Router Name Role Phone CALEB NDIAYE Unavailable PROBLEMS Type Condition ICD9-CM Code [id number] Code Onset Dates Condition Status SNOMED Code Problem Counseling for control, oral contraceptives Z30.9 Active 348896616 Problem Sleep disorder, unspecified G47.9 Active 99652280 Problem Elevated hemoglobin A1c R73.09 Active 218098350 Problem Other malaise R53.81 Active 126294913 Problem Attention deficit disorder without mention of hyperactivity F90.0 Active 689600224 Problem Abnormal menstrual periods N92.6 Active 530611600 Problem Irregular menstrual bleeding N92.6 Active 95786792 Problem Hair thinning L65.9 Active 306080944 Problem Oral contraceptive pill surveillance Z30.41 Active 123672441 Problem Acanthosis nigricans L83 Active 077030647 Problem Obesity (BMI 30-39.9) E66.9 Active 639820161 ALLERGIES Substance Reaction Event Type Date Status Penicillin V Potassium Unknown Drug Allergy Jul, Active SOCIAL HISTORY Never Assessed PLAN OF CARE Activity Details Follow Up prn with [facility] your PCP Reason: VITAL SIGNS Height 72 in 2016-08-13 Weight 241.5 lbs 2016-08-13 Temperature 97.0 degrees Fahrenheit 2016-08-13 Heart Rate 86 bpm 2016-08-13 Respiratory Rate 18 2016-08-13 BMI 32.75 kg/m2 2016-08-13 Blood pressure systolic 126 mmHg 2016-08-13 Blood pressure diastolic 72 mmHg 2016-08-13 MEDICATIONS Medication Instructions Dosage Frequency Start Date End Date Duration Status Methylphenidate HCl 20 mg Orally Twice a day 1 tablet 12h 08 Jul, 2016 28 days Active RESULTS Name Result Date Reference Range TEST, URINE (IN HOUSE) 2016-08-13 RESULTS negative Lot # [id number] Control + Exp date 09/2017 PDF Report 2016-08-13 PDF Report1 [facility] REPORT 2016-08-13 . . . . . . . . PROCEDURES Procedure Date Ordered Result Body Site URINE TEST Aug 13, 2016 BIOPSY OF UTERUS LINING Aug 13, 2016 IMMUNIZATIONS No Known Immunizations MEDICAL (GENERAL) HISTORY Type Description Date Medical History ADHD Medical History History of genital warts Medical History Family history of diabetes mellitus Medical History Family history of Glades's chorea Medical History Family history of heart disease Surgical History pilonidal cyst excision jun 2016
--- OUTSIDE RECORDS SUMMARY | 2017-03-26 13:56 | XMS REPORT ---
Author Author WILLOW ABAD [facility] Address [address] [place] [address] Care Team Providers Care Security Systems Engineer Name Role Phone WILLOW ABAD Unavailable PROBLEMS Type Condition ICD9-CM Code [id number] Code Onset Dates Condition Status SNOMED Code Problem Counseling for control, oral contraceptives Z30.9 Active 649791639 Problem Sleep disorder, unspecified G47.9 Active 10945307 Problem Elevated hemoglobin A1c R73.09 Active 620435280 Problem Other malaise R53.81 Active 379520927 Problem Attention deficit disorder without mention of hyperactivity F90.0 Active 502493578 Problem Abnormal menstrual periods N92.6 Active 072146963 Problem Irregular menstrual bleeding N92.6 Active 14943448 Problem Hair thinning L65.9 Active 488876387 Problem Oral contraceptive pill surveillance Z30.41 Active 472982666 Problem Acanthosis nigricans L83 Active 042122290 Problem Obesity (BMI 30-39.9) E66.9 Active 369981004 ALLERGIES Unknown Allergies SOCIAL HISTORY No smoking Hx information available PLAN OF CARE VITAL SIGNS MEDICATIONS Medication Instructions Dosage Frequency Start Date End Date Duration Status Methylphenidate HCl 20 mg Orally Twice a day 1 tablet 12h 10 Jun, 2016 28 days Active RESULTS No Results PROCEDURES No Known procedures IMMUNIZATIONS No Known Immunizations
--- OUTSIDE RECORDS SUMMARY | 2017-03-26 13:56 | XMS REPORT ---
Author Author CONSTANTINO Kay Organization [facility] Address [address] [place] [address] Care Team Providers Care Stitch Cleaner Name Role Phone CONSTANTINO Kay Unavailable PROBLEMS Type Condition ICD9-CM Code [id number] Code Onset Dates Condition Status SNOMED Code Problem Counseling for control, oral contraceptives Z30.9 Active 254435074 Problem Sleep disorder, unspecified G47.9 Active 68361554 Problem Elevated hemoglobin A1c R73.09 Active 066275385 Problem Other malaise R53.81 Active 428445975 Problem Attention deficit disorder without mention of hyperactivity F90.0 Active 991021095 Problem Abnormal menstrual periods N92.6 Active 626740166 Problem Irregular menstrual bleeding N92.6 Active 58859621 Problem Hair thinning L65.9 Active 012845092 Problem Oral contraceptive pill surveillance Z30.41 Active 322937749 Problem Acanthosis nigricans L83 Active 059218422 Problem Obesity (BMI 30-39.9) E66.9 Active 777141865 ALLERGIES Unknown Allergies SOCIAL HISTORY No smoking Hx information available PLAN OF CARE VITAL SIGNS MEDICATIONS Medication Instructions Dosage Frequency Start Date End Date Duration Status Methylphenidate HCl 20 mg Orally Twice a day 1 tablet 12h 08 Jul, 2016 28 days Active RESULTS No Results PROCEDURES No Known procedures IMMUNIZATIONS No Known Immunizations
--- OUTSIDE RECORDS SUMMARY | 2017-03-26 13:57 | XMS REPORT ---
Author Author JESSICA MERCHANT Organization [facility] [place] Address [address] [place] [address] Care Team Providers Care Mechanical Manufacturing Engineer Name Role Phone JESSICA MERCHANT Unavailable PROBLEMS Type Condition ICD9-CM Code ANC98-AQ Code Onset Dates Condition Status SNOMED Code Problem Counseling for control, oral contraceptives Z30.9 Active 414146766 Problem Elevated hemoglobin A1c R73.09 Active 339201147 Problem Attention deficit disorder without mention of hyperactivity F90.0 Active 481903611 Problem Sleep disorder, unspecified G47.9 Active 93955311 Problem Other malaise R53.81 Active 731933808 Problem Abnormal menstrual periods N92.6 Active 339388350 Problem Acanthosis nigricans L83 Active 422758546 Problem Hair thinning L65.9 Active 524228729 Problem Oral contraceptive pill surveillance Z30.41 Active 622783361 Problem Irregular menstrual bleeding N92.6 Active 90223440 Problem Obesity (BMI 30-39.9) E66.9 Active 386894264 ALLERGIES Unknown Allergies SOCIAL HISTORY No smoking Hx information available PLAN OF CARE VITAL SIGNS MEDICATIONS Unknown Medications RESULTS No Results PROCEDURES No Known procedures IMMUNIZATIONS No Known Immunizations
--- OUTSIDE RECORDS SUMMARY | 2017-03-26 13:57 | XMS REPORT ---
Author Author JESSICA MERCHANT Organization [facility] [place] Address [address] [place] [address] Care Team Providers Care Dental Instrument Maker Name Role Phone SHONDA JESSICA Unavailable PROBLEMS Type Condition ICD9-CM Code [id number] Code Onset Dates Condition Status SNOMED Code Problem Counseling for control, oral contraceptives Z30.9 Active 063417344 Problem Elevated hemoglobin A1c R73.09 Active 062198627 Problem Attention deficit disorder without mention of hyperactivity F90.0 Active 320536404 Problem Sleep disorder, unspecified G47.9 Active 93821708 Problem Other malaise R53.81 Active 834787090 Problem Abnormal menstrual periods N92.6 Active 834002844 Problem Acanthosis nigricans L83 Active 448967678 Problem Hair thinning L65.9 Active 256455052 Problem Oral contraceptive pill surveillance Z30.41 Active 033650982 Problem Irregular menstrual bleeding N92.6 Active 74094957 Problem Obesity (BMI 30-39.9) E66.9 Active 071987783 ALLERGIES Substance Reaction Event Type Date Status Penicillin V Potassium Unknown Drug Allergy May, Active SOCIAL HISTORY No smoking Hx information available PLAN OF CARE VITAL SIGNS MEDICATIONS Medication Instructions Dosage Frequency Start Date End Date Duration Status Methylphenidate HCl 20 mg Orally Twice a day 1 tablet 12h May, Active RESULTS No Results PROCEDURES No Known procedures IMMUNIZATIONS No Known Immunizations
--- OUTSIDE RECORDS SUMMARY | 2017-03-26 13:57 | XMS REPORT ---
Author Author JESSICA MERCHANT Organization [facility] Address [address] [place] [address] Care Team Providers Care Candlemaking Laborer Name Role Phone SHONDA JESSICA Unavailable PROBLEMS Type Condition ICD9-CM Code FLP43-OU Code Onset Dates Condition Status SNOMED Code Problem Counseling for control, oral contraceptives Z30.9 Active 672423592 Problem Elevated hemoglobin A1c R73.09 Active 206670220 Problem Attention deficit disorder without mention of hyperactivity F90.0 Active 482688228 Problem Sleep disorder, unspecified G47.9 Active 69366482 Problem Other malaise R53.81 Active 348441112 Problem Abnormal menstrual periods N92.6 Active 452216632 Problem Acanthosis nigricans L83 Active 324412767 Problem Hair thinning L65.9 Active 486562603 Problem Oral contraceptive pill surveillance Z30.41 Active 138880587 Problem Irregular menstrual bleeding N92.6 Active 61750721 Problem Obesity (BMI 30-39.9) E66.9 Active 672842981 ALLERGIES Substance Reaction Event Type Date Status Penicillin V Potassium Unknown Drug Allergy May, Active SOCIAL HISTORY No smoking Hx information available PLAN OF CARE Activity Details Follow Up 4 Weeks Reason:follow up labs VITAL SIGNS Height 72 in 2016-06-18 Weight 241.0 lbs 2016-06-18 Temperature 97.8 degrees Fahrenheit 2016-06-18 Heart Rate 86 bpm 2016-06-18 Respiratory Rate 20 2016-06-18 BMI 32.68 kg/m2 2016-06-18 Blood pressure systolic 128 mmHg 2016-06-18 Blood pressure diastolic 74 mmHg 2016-06-18 MEDICATIONS Medication Instructions Dosage Frequency Start Date End Date Duration Status Methylphenidate HCl 20 mg Orally Twice a day 1 tablet 12h 15 May, 2016 Active RESULTS Name Result Date Reference Range THYROID ANALYZER 2016-06-18 TSH 1.110 0.450-4.500 A1C 2016-06-18 Hemoglobin A1c 5.7 4.8-5.6 CBC 2016-06-18 WBC 10.6 3.4-10.8 RBC 5.04 3.77-5.28 Hemoglobin 13.9 11.1-15.9 Hematocrit 42.8 34.0-46.6 MCV 85 79-97 MCH 27.6 26.6-33.0 MCHC 32.5 31.5-35.7 RDW 13.4 12.3-15.4 Platelets 390 150-379 Neutrophils 63 Lymphs 24 Monocytes 9 Eos 2 Basos 1 Immature Cells Neutrophils (Absolute) 6.7 1.4-7.0 Lymphs (Absolute) 2.5 0.7-3.1 Monocytes(Absolute) 1.0 0.1-0.9 Eos (Absolute) 0.3 0.0-0.4 Baso (Absolute) 0.1 0.0-0.2 Immature Granulocytes 1 Immature Grans (Abs) 0.1 0.0-0.1 Hematology Comments: LIPID PANEL 2016-06-18 Cholesterol, Total 191 100-199 Triglycerides 126 0-149 HDL Cholesterol 31 >39 VLDL Cholesterol Lawrence 25 5-40 LDL Cholesterol Calc 135 0-99 CMP 2016-06-18 Glucose, Serum 92 65-99 BUN 12 6-20 Creatinine, Serum 0.93 0.57-1.00 eGFR If NonAfricn Am 86 >59 eGFR If Africn Am 99 >59 BUN/Creatinine Ratio 13 8-20 Sodium, Serum 142 134-144 Potassium, Serum 4.6 3.5-5.2 Chloride, Serum 100 96-106 Carbon Dioxide, Total 22 18-29 Calcium, Serum 9.6 8.7-10.2 Protein, Total, Serum 7.2 6.0-8.5 Albumin, Serum 4.3 3.5-5.5 Globulin, Total 2.9 1.5-4.5 A/G Ratio 1.5 1.1-2.5 Bilirubin, Total <0.2 0.0-1.2 Alkaline Phosphatase, S 117 39-117 AST (SGOT) 19 0-40 ALT (SGPT) 21 0-32 Ultrasound : Pelvic, COMPLETE (REFLEX [id number]) 2016-06-26 PROCEDURES Procedure Date Ordered Related Diagnosis Body Site SINGLE IMMUNIZATION ADMIN Jun 18, 2016 ROUTINE VENIPUNCTURE 2016-06-18 N/A GLYCATED HEMOGLOBIN TEST Jun 18, 2016 VENIPUNCT, ROUTINE* Jun 18, 2016 Office Visit, Est Pt., Level 4 Jun 18, 2016 FLUARIX QUAD P-FREE 3 AND UP .50 2015Jun 18, 2016 COMPREHEN METABOLIC PANEL Jun 18, 2016 COMPLETE CBC W/AUTO DIFF WBC Jun 18, 2016 LIPID PANEL Jun 18, 2016 ASSAY THYROID STIM HORMONE Jun 18, 2016 IMMUNIZATIONS Vaccine Route Administration Date Status FLUARIX QUAD P-FREE 3 AND UP .50 2015 IM Intramuscular Jun 18, 2016 Administered
--- OUTSIDE RECORDS SUMMARY | 2017-03-26 13:58 | XMS REPORT | Continuity of Care Document ---
Author Author [facility] Address Unknown Phone Unavailable Allergies Active Description Code Type Severity Reaction Onset Reported/Identified Relationship to Patient Clinical Status Yes Penicillins Drug Allergy 01/25/2009 Yes Penicillins Drug Allergy N/A N/A 01/25/2009 Medications Problems Date Dx Coded Attending Type Code Diagnosis Diagnosed By 01/25/2009 133.0 Scabies 01/25/2009 133.0 Scabies 01/25/2009 JOAQUIN GOMES DO 133.0 Scabies 01/25/2009 FRANCO BALLESTEROS APRN 133.0 Scabies 01/25/2009 MARKELL MOONEY APRN 133.0 Scabies 01/25/2009 MARKELL MOONEY APRN 133.0 Scabies 01/25/2009 MARKELL MOONEY APRN 133.0 Scabies 01/25/2009 JOAQUIN GOMES DO 133.0 Scabies 01/25/2009 GIAN SANTAMARIA APRN 133.0 Scabies 01/25/2009 FRANCO BALLESTEROS APRN 133.0 Scabies 01/25/2009 JOAQUIN GOMES DO 133.0 Scabies 01/25/2009 JOSIE ALMEIDA APRN 133.0 Scabies 01/25/2009 RONNIE ROQUE APRN 133.0 Scabies 10/17/2010 V25.01 Contraception Counseling- Oral Contraception 10/17/2010 V65.45 Std Counseling 10/17/2010 V72.31 Wet Sander Exam, Routine 10/17/2010 V74.5 Std Screen 10/17/2010 V25.01 Contraception Counseling- Oral Contraception 10/17/2010 V65.45 Std Counseling 10/17/2010 V72.31 Wet Sander Exam, Routine 10/17/2010 V74.5 Std Screen 10/17/2010 JOAQUIN GOMES DO V25.01 Contraception Counseling- Oral Contraception 10/17/2010 GOMES DO, JOAQUIN K V65.45 Std Counseling 10/17/2010 GOMES DO JOAQUIN K V72.31 Wet Sander Exam, Routine 10/17/2010 GOMES DO, JOAQUIN K V74.5 Std Screen 10/17/2010 FRANCO BALLESTEROS APRN V25.01 Contraception Counseling- Oral Contraception 10/17/2010 FRANCO BALLESTEROS APRN V65.45 Std Counseling 10/17/2010 FRANCO BALLESTEROS APRN V72.31 Wet Sander Exam, Routine 10/17/2010 FRANCO BALLESTEROS APRN V74.5 Std Screen 10/17/2010 JESICA RODRIGUEZMario MARKELL WALLIS V25.01 Contraception Counseling- Oral Contraception 10/17/2010 JESICA RODRIGUEZMario MARKELL WALLIS V65.45 Std Counseling 10/17/2010 JESICA RODRIGUEZMario MARKELL WALLIS V72.31 Wet Sander Exam, Routine 10/17/2010 JESICA RODRIGUEZMario MARKELL WALLIS V74.5 Std Screen 10/17/2010 JESICA RODRIGUEZMario MARKELL WALLIS V25.01 Contraception Counseling- Oral Contraception 10/17/2010 JESICA RODRIGUEZMario MARKELL WALLIS V65.45 Std Counseling 10/17/2010 JESICA RODRIGUEZMario MARKELL WALLIS V72.31 Wet Sander Exam, Routine 10/17/2010 JESICA RODRIGUEZMario MARKELL WALLIS V74.5 Std Screen 10/17/2010 JESICA RODRIGUEZMario MARKELL WALLIS V25.01 Contraception Counseling- Oral Contraception 10/17/2010 JESICA RODRIGUEZMario MARKELL WALLIS V65.45 Std Counseling 10/17/2010 JESICA RODRIGUEZMario MARKELL WALLIS V72.31 Wet Sander Exam, Routine 10/17/2010 JESICA RODRIGUEZMario MARKELL WALLIS V74.5 Std Screen 10/17/2010 GOMES DO JOAQUIN K V25.01 Contraception Counseling- Oral Contraception 10/17/2010 GOMES DO, JOAQUIN K V65.45 Std Counseling 10/17/2010 GOMES DO, JOAQUIN K V72.31 Wet Sander Exam, Routine 10/17/2010 GOMES DO, JOAQUIN K V74.5 Std Screen 10/17/2010 GIAN SANTAMARIA APRN A V25.01 Contraception Counseling- Oral Contraception 10/17/2010 GIAN SANTAMARIA APRN A V65.45 Std Counseling 10/17/2010 HINAMario LARKIN GIAN A V72.31 Wet Sander Exam, Routine 10/17/2010 HINA FIRM ADMINISTRATOR, GIAN A V74.5 Std Screen 10/17/2010 FRANCO BALLESTEROS APRN V25.01 Contraception Counseling- Oral Contraception 10/17/2010 FRANCO BALLESTEROS APRN V65.45 Std Counseling 10/17/2010 FRANCO BALLESTEROS APRN V72.31 Wet Sander Exam, Routine 10/17/2010 FRANCO BALLESTEROS APRN V74.5 Std Screen 10/17/2010 GOMES DOSADAFA K V25.01 Contraception Counseling- Oral Contraception 10/17/2010 GOMES DO JOAQUIN K V65.45 Std Counseling 10/17/2010 GOMES DO JOAQUIN K V72.31 Wet Sander Exam, Routine 10/17/2010 GOMES DO JOAQUIN K V74.5 Std Screen 10/17/2010 JUAN PABLO FIRM ADMINISTRATOR, JOSIE R V25.01 Contraception Counseling- Oral Contraception 10/17/2010 JUAN PABLO FIRM ADMINISTRATOR, JOSIE R V65.45 Std Counseling 10/17/2010 JUAN PABLO RODRIGUEZN, JOSIE R V72.31 Wet Sander Exam, Routine 10/17/2010 JUAN PABLO FIRM ADMINISTRATOR, JOSIE R V74.5 Std Screen 10/17/2010 MYA FIRM ADMINISTRATOR, RONNIE V25.01 Contraception Counseling- Oral Contraception 10/17/2010 MYA FIRM ADMINISTRATOR, RONNIE V65.45 Std Counseling 10/17/2010 MYA FIRM ADMINISTRATOR, RONNIE V72.31 Wet Sander Exam, Routine 10/17/2010 MYA FIRM ADMINISTRATOR, RONNIE V74.5 Std Screen 07/23/2011 780.50 SLEEP DISTURBANCE, UNSPECIFIED 07/23/2011 780.79 Malaise And Fatigue 07/23/2011 799.22 Irritibility 07/23/2011 780.50 SLEEP DISTURBANCE, UNSPECIFIED 07/23/2011 780.79 Malaise And Fatigue 07/23/2011 799.22 Irritibility 07/23/2011 GOMES DO JOAQUIN K 780.50 SLEEP DISTURBANCE, UNSPECIFIED 07/23/2011 GOMES DO JOAQUIN K 780.79 Malaise And Fatigue 07/23/2011 GOMES DO JOAQUIN K 799.22 Irritibility 07/23/2011 FRANCO BALLESTEROS APRN 780.50 SLEEP DISTURBANCE, UNSPECIFIED 07/23/2011 FRANCO BALLESTEROS APRN 780.79 Malaise And Fatigue 07/23/2011 FRANCO BALLESTEROS APRN 799.22 Irritibility 07/23/2011 MOONEY FIRM ADMINISTRATOR, MARKELL WALLIS 780.50 SLEEP DISTURBANCE, UNSPECIFIED 07/23/2011 MOONEY FIRM ADMINISTRATOR, MARKELL WALLIS 780.79 Malaise And Fatigue 07/23/2011 MOONEY FIRM ADMINISTRATOR, MARKELL WALLIS 799.22 Irritibility 07/23/2011 MOONEY FIRM ADMINISTRATOR, MARKELL WALLIS 780.50 SLEEP DISTURBANCE, UNSPECIFIED 07/23/2011 MOONEY FIRM ADMINISTRATOR, MARKELL WALLIS 780.79 Malaise And Fatigue 07/23/2011 MOONEY FIRM ADMINISTRATOR, MARKELL WALLIS 799.22 Irritibility 07/23/2011 MOONEY FIRM ADMINISTRATOR, MARKELL WALLIS 780.50 SLEEP DISTURBANCE, UNSPECIFIED 07/23/2011 MOONEY FIRM ADMINISTRATOR, MARKELL WALLIS 780.79 Malaise And Fatigue 07/23/2011 MOONEY FIRM ADMINISTRATOR, MARKELL WALLIS 799.22 Irritibility 07/23/2011 GOMES DO, JOAQUIN K 780.50 SLEEP DISTURBANCE, UNSPECIFIED 07/23/2011 GOMES DO, JOAQUIN K 780.79 Malaise And Fatigue 07/23/2011 GOMES DO, JOAQUIN K 799.22 Irritibility 07/23/2011 HINA FIRM ADMINISTRATORGIAN A 780.50 SLEEP DISTURBANCE, UNSPECIFIED 07/23/2011 HINA FIRM ADMINISTRATORVANDANAGIAN A 780.79 Malaise And Fatigue 07/23/2011 HINA FIRM ADMINISTRATOR GIAN A 799.22 Irritibility 07/23/2011 FRANCO BALLESTEROS APRN 780.50 SLEEP DISTURBANCE, UNSPECIFIED 07/23/2011 FRANCO BALLESTEROS APRN 780.79 Malaise And Fatigue 07/23/2011 FRANCO BALLESTEROS APRN 799.22 Irritibility 07/23/2011 GOMES DO, JOAQUIN K 780.50 SLEEP DISTURBANCE, UNSPECIFIED 07/23/2011 GOMES DO, JOAQUIN K 780.79 Malaise And Fatigue 07/23/2011 GOMES DO, JOAQUIN K 799.22 Irritibility 07/23/2011 JUAN PABLO RODRIGUEZN JOSIE R 780.50 SLEEP DISTURBANCE, UNSPECIFIED 07/23/2011 JUAN PABLO RODRIGUEZN JOSIE R 780.79 Malaise And Fatigue 07/23/2011 KELLIE ALMEIDA APRNINA R 799.22 Irritibility 07/23/2011 RONNIE ROQUE APRN 780.50 SLEEP DISTURBANCE, UNSPECIFIED 07/23/2011 RONNIE ROQUE APRN 780.79 Malaise And Fatigue 07/23/2011 RONNIE ROQUE APRN 799.22 Irritibility 08/01/2011 461.9 Acute Sinusitis Unspecified 08/01/2011 461.9 Acute Sinusitis Unspecified 08/01/2011 JOAQUIN GOMES DO 461.9 Acute Sinusitis Unspecified 08/01/2011 FRANCO BALLESTEROS APRN 461.9 Acute Sinusitis Unspecified 08/01/2011 MARKELL MOONEY APRN 461.9 Acute Sinusitis Unspecified 08/01/2011 MARKELL MOONEY APRN 461.9 Acute Sinusitis Unspecified 08/01/2011 MARKELL MOONEY APRN 461.9 Acute Sinusitis Unspecified 08/01/2011 JOAQUIN GOMES DO 461.9 Acute Sinusitis Unspecified 08/01/2011 HINA APRN, GIAN A 461.9 Acute Sinusitis Unspecified 08/01/2011 FRANCO BALLESTEROS APRN 461.9 Acute Sinusitis Unspecified 08/01/2011 JOAQUIN GOMES DO 461.9 Acute Sinusitis Unspecified 08/01/2011 JOSIE ALMEIDA APRN R 461.9 Acute Sinusitis Unspecified 08/01/2011 RONNIE ROQUE APRN 461.9 Acute Sinusitis Unspecified 10/29/2011 V76.2 Cervical Cancer Screening (pap Smear) 10/29/2011 V76.2 Cervical Cancer Screening (pap Smear) 10/29/2011 JOAQUIN GOMES DO V76.2 Cervical Cancer Screening (pap Smear) 10/29/2011 FRANCO BALLESTEROS APRN V76.2 Cervical Cancer Screening (pap Smear) 10/29/2011 MARKELL MOONEY APRN V76.2 Cervical Cancer Screening (pap Smear) 10/29/2011 MARKELL MOONEY APRN V76.2 Cervical Cancer Screening (pap Smear) 10/29/2011 MARKELL MOONEY APRN V76.2 Cervical Cancer Screening (pap Smear) 10/29/2011 JOAQUIN GOMES DO V76.2 Cervical Cancer Screening (pap Smear) 10/29/2011 GIAN SANTAMARIA APRN V76.2 Cervical Cancer Screening (pap Smear) 10/29/2011 FRANCO BALLESTEROS APRN V76.2 Cervical Cancer Screening (pap Smear) 10/29/2011 JOAQUIN GOMES DO V76.2 Cervical Cancer Screening (pap Smear) 10/29/2011 JOSIE ALMEIDA APRN V76.2 Cervical Cancer Screening (pap Smear) 10/29/2011 RONNIE ROQUE APRN V76.2 Cervical Cancer Screening (pap Smear) 12/13/2011 463 ACUTE TONSILLITIS 12/13/2011 463 ACUTE TONSILLITIS 12/13/2011 JOAQUIN GOMES DO 463 ACUTE TONSILLITIS 12/13/2011 FRANCO BALLESTEROS APRN 463 ACUTE TONSILLITIS 12/13/2011 MARKELL MOONEY APRN 463 ACUTE TONSILLITIS 12/13/2011 MARKELL MOONEY APRN 463 ACUTE TONSILLITIS 12/13/2011 MARKELL MOONEY APRN 463 ACUTE TONSILLITIS 12/13/2011 JOAQUIN GOMES DO K 463 ACUTE TONSILLITIS 12/13/2011 GIAN SANTAMARIA APRN A 463 ACUTE TONSILLITIS 12/13/2011 FRANCO BALLESTEROS APRN 463 ACUTE TONSILLITIS 12/13/2011 JOAQUIN GOMES DO K 463 ACUTE TONSILLITIS 12/13/2011 JOSIE ALMEIDA APRN 463 ACUTE TONSILLITIS 12/13/2011 RONNIE ROQUE APRN 463 ACUTE TONSILLITIS 06/02/2013 JOAQUIN GOMES DO 314.00 ADD 06/02/2013 FRANCO BALLESTEROS APRN 314.00 ADD 06/02/2013 MARKELL MOONEY APRN 314.00 ADD 06/02/2013 MARKELL MOONEY APRN 314.00 ADD 06/02/2013 MARKELL MOONEY APRN 314.00 ADD 06/02/2013 JOAQUIN GOMES DO K 314.00 ADD 06/02/2013 GIAN SANTAMARIA APRN A 314.00 ADD 06/02/2013 FRANCO BALLESTEROS APRN 314.00 ADD 06/02/2013 JOAQUIN GOMES DO K 314.00 ADD 06/02/2013 JOSIE ALMEIDA APRN 314.00 ADD 06/02/2013 MYA LARKIN, RONNIE 314.00 ADD 07/09/2013 FRANCO BALLESTEROS APRN 465.9 UPPER RESPIRATORY INFECTION 07/09/2013 JESICA RODRIGUEZN, MARKELL WALLIS 465.9 UPPER RESPIRATORY INFECTION 07/09/2013 JESICA RODRIGUEZN, MARKELL WALLIS 465.9 UPPER RESPIRATORY INFECTION 07/09/2013 JESICA RODRIGUEZN, MARKELL WALLIS 465.9 UPPER RESPIRATORY INFECTION 07/09/2013 JOAQUIN GOMES DO K 465.9 UPPER RESPIRATORY INFECTION 07/09/2013 GIAN SANTAMARIA APRN A 465.9 UPPER RESPIRATORY INFECTION 07/09/2013 FRANCO BALLESTEROS APRN 465.9 UPPER RESPIRATORY INFECTION 07/09/2013 JOAQUIN GOMES DO K 465.9 UPPER RESPIRATORY INFECTION 07/09/2013 JOSIE ALMEIDA APRN R 465.9 UPPER RESPIRATORY INFECTION 07/09/2013 RONNIE ROQUE APRN 465.9 UPPER RESPIRATORY INFECTION 04/19/2014 JOAQUIN GOMES DO K 461.9 SINUSITIS ACUTE 04/19/2014 GIAN SANTAMARIA APRN A 461.9 SINUSITIS ACUTE 04/19/2014 FRANCO BALLESTEROS APRN 461.9 SINUSITIS ACUTE 04/19/2014 JOAQUIN GOMES DO K 461.9 SINUSITIS ACUTE 04/19/2014 JOSIE ALMEIDA APRN R 461.9 SINUSITIS ACUTE 04/19/2014 RONNIE ROQUE APRN 461.9 SINUSITIS ACUTE 06/09/2014 GIAN SANTAMARIA APRN A V25.01 CONTRACEPTION - ORAL CONTRACEPTION 06/09/2014 FRANCO BALLESTEROS APRN V25.01 CONTRACEPTION - ORAL CONTRACEPTION 06/09/2014 JOAQUIN GOMES DO K V25.01 CONTRACEPTION - ORAL CONTRACEPTION 06/09/2014 KELLIE ALMEIDA APRNINA R V25.01 CONTRACEPTION - ORAL CONTRACEPTION 06/09/2014 RONNIE ROQUE APRN V25.01 CONTRACEPTION - ORAL CONTRACEPTION 09/13/2014 SADAF GOMES DOA K 462 PHARYNGITIS ACUTE 09/13/2014 KELLIE ALMEIDA APRNINA R 462 PHARYNGITIS ACUTE 09/13/2014 RAGHAV ROQUE APRNETTE 462 PHARYNGITIS ACUTE 09/27/2014 JOSIE ALMEIDA APRN 388.70 OTALGIA UNSPECIFIED 09/27/2014 MYA RONNIE LARKIN 388.70 OTALGIA UNSPECIFIED Procedures Code [place] [address] URINE DRUG SCREEN (IN-HOUSE) 06/02/2013 50319 TEST, URINE (IN-HOUSE) 06/09/2014 07759 STREP A (IN-HOUSE) 09/13/2014 Results Encounters ACCT No. Visit Date/Time Discharge Status Pt. Type Provider Facility Loc./Unit Complaint [id number] 10/04/2014 14:33:00 10/04/2014 23: 59:59 CLS Outpatient RONNIE ROQUE APRN [id number] 09/27/2014 17:08:00 09/27/2014 23: 59:59 CLS Outpatient JOSIE ALMEIDA APRN [id number] 09/19/2014 12:19:00 09/19/2014 23: 59:59 CLS Outpatient JOAQUIN GOMES DO [id number] 07/02/2014 12:56:00 07/02/2014 23: 59:59 CLS Outpatient FRANCO BALLESTEROS APRN [id number] 06/09/2014 14:05:00 06/09/2014 23: 59:59 CLS Outpatient HINAGIAN Martin APRN [id number] 04/19/2014 18:13:00 04/19/2014 23: 59:59 CLS Outpatient JOAQUIN GOMES DO [id number] 02/15/2014 16:24:00 02/15/2014 23: 59:59 CLS Outpatient JESICA RODRIGUEZNMARKELL [id number] 01/07/2014 14:13:00 01/07/2014 23: 59:59 CLS Outpatient JESICA RODRIGUEZNMARKELL [id number] 08/27/2013 10:41:00 08/27/2013 23: 59:59 CLS Outpatient JESICA RODRIGUEZNMARKELL [id number] 07/09/2013 15:57:00 07/09/2013 23: 59:59 CLS Outpatient FRANCO BALLESTEROS APRN [id number] 06/02/2013 11:03:00 06/02/2013 23: 59:59 [place] [id number] 12/13/2011 09:19:00 12/13/2011 23: 59:59 CLS Outpatient [id number] 12/13/2011 09:19:00 Document Registration
[2017-03-26] MEDS ORDERED: KETOROLAC 60 MG/2 ML VIAL IM STA (14:21)
--- NOTE | 2017-03-26 14:21 | ED Back Pain ---
General Chief Complaint: Hip/Pelvic Problems Stated Complaint: TAILBONE PAIN Nursing Triage Note: PT REPORTS SHE SLID DOWN APPROX 8 STEPS LAST WEEK AND HAS PAIN TO HER TAILBONE THAT IS WORSENING OVER THE LAST COUPLE OF DAYS. Nursing Sepsis Screen: No Definite Risk Source of Information: Patient Exam Limitations: No Limitations History of Present Illness Time Seen by Provider: 14:10 Initial Comments 26-year-old female patient presents to the emergency department on complaints of slipping on stairs and sliding down approximately 8 stairs one week ago while on vacation. Reports of the last couple a day she has noticed increased tailbone pain. Denies numbness, weakness, back pain, bowel incontinence, or bladder incontinence. Denies contacting her family practitioner or any other providers for the symptoms. Denies hitting her head or loss of consciousness. Location: Coccyx Timing/Duration: 1 Week Pain/Injury Location: Other (coccyx) Radiation: Other (denies radiation) Method of Injury: Fall Modifying Factors: Worse With Other (worse with sitting and movement) Associated Symptoms: No muscle spasms, No fever, No weakness, No numbness in legs/feet, No tingling in legs/feet, No sensory/motor loss, No lower back pain, No loss of bladder control, No loss of bowel control Allergies and Home Medications Allergies Coded Allergies: Penicillins (Unverified Allergy, Unknown, 07/07/16) Home Medications Ibuprofen 800 Mg Tablet, 800 MG PO Q8H PRN for PAIN, #30 Prescribed by: WILLIAM WASHINGTON on 11/04/16 1509 Ketoprofen 50 Mg Capsule, 50 MG PO TID PRN for pain, #15 Ref 0 Prescribed by: MARITZA MOREAU on 03/26/17 1519 Methylphenidate HCl 20 Mg Tablet, 20 MG PO DAILY, (Reported) Constitutional: no symptoms reported EENTM: no symptoms reported Respiratory: No cough, No short of breath Cardiovascular: No chest pain, No syncope Gastrointestinal: No abdominal pain, No constipation, No diarrhea, No nausea, No vomiting Genitourinary: No decreased output, No dysuria, No frequency, No hematuria Musculoskeletal: see HPI, No back pain, No joint pain, No neck pain, other ( coccyx pain) Skin: no symptoms reported Psychiatric/Neurological: Denies Headache, Denies Numbness, Denies Paresthesia , Denies Tingling, Denies Weakness All Other Systems Reviewed Negative Unless Noted: Yes (Negative excepted noted.) Past Kkdvdsj-Gushhs-Uvqorm Hx Patient Social History Alcohol Use: Occasionally Uses Number of Drinks Today: II Alcohol Beverage of Choice: Other Recreational Drug Use: Yes Drug of Choice: Marijuana Smoking Status: Never a Smoker 2nd Hand Smoke Exposure: No Recent Foreign Travel: No Contact w/Someone Who Travel: No Recent Infectious Disease Expo: No Recent Hopitalizations: No Physical Abuse: No Sexual Abuse: No Immunizations Up To Date Tetanus Booster (TDap): Less than 5yrs PED Vaccines UTD: Yes Date of Influenza Vaccine: Jun 01, 2016 Seasonal Allergies Seasonal Allergies: No Surgeries History of Surgeries: Yes (PILONIDAL CYST/ABSCESS REMOVED) Respiratory History of Respiratory Disorde: No Cardiovascular History of Cardiac Disorders: No Neurological History of Neurological Disord: No Reproductive System Hx Reproductive Disorders: Yes (IRREGULAR PERIODS) Female Reproductive Disorders: Menstrual Problems, Polycystic Ovarian Dis Gastrointestinal History of Gastrointestinal Di: No Musculoskeletal History of Musculoskeletal Dis: No (HX LEFT ARM FX) Musculoskeletal Disorders: Fractures Endocrine History of Endocrine Disorders: No HEENT History of HEENT Disorders: No Cancer History of Cancer: No Psychosocial History of Psychiatric Problem: Yes Behavioral Health Disorders: ADD/ADHD Suicide Risk Score: 0 Integumentary History of Skin or Integumenta: No Blood Transfusions History of Blood Disorders: No Reviewed Nursing Assessment Reviewed/Agree w Nursing PMH: Yes Family Medical History Significant Family History: No Pertinent Family Hx Physical Exam Vital Signs Vital Sign - Last 12Hours 03/26/17 14:02 Temp 97.2 B/P (MAP) 122/75 Pulse Ox 16 O2 Delivery Room Air Capillary Refill : Less Than 3 Seconds General Appearance: No Apparent Distress, WD/WN HEENT: PERRL/EOMI, Pharynx Normal Neck: Full Range of Motion, Normal Inspection, Non Tender, Supple Cardiovascular: Regular Rate, Rhythm, No Edema, No Murmur, Normal Peripheral Pulses Respiratory: Lungs Clear, Normal Breath Sounds, No Accessory Muscle Use, No Respiratory Distress Peripheral Pulses: 2+ Dorsalis Pedis (R), 2+ Left Dors-Pedis (L), 2+ Radial Pulses (R), 2+ Radial Pulses (L) Gastrointestinal: Normal Bowel Sounds, No Organomegaly, Non Tender, Soft Back: Normal Inspection, Other (TTP over the lower sacrum. very mild tenderness noted of the bilateral buttocks. No ecchymosis, deformity, or swelling noted.) Extremity: Normal Capillary Refill, Normal Inspection, Normal Range of Motion, No Pedal Edema, Pelvis Stable, Other (very mild swelling noted over the bilateral buttocks without evidence of trauma.) Neurologic/Psychiatric: Alert, Oriented x3, No Motor/Sensory Deficits, Normal Mood/Affect, lug loader II-XII Norm as Tested Skin: Normal Color, Warm/Dry, No Ecchymosis Progress/Results/Core Measures Results/Orders My Orders Orders - MARITZA MOREAU Urine Bedside (03/26/17 14:21) Ketorolac Injection (Toradol Injection) (03/26/17 14:21) Ct Pelvis Wo (03/26/17 14:21) Vital Signs/I&O Vital Sign - Last 12Hours 03/26/17 14:02 Temp 97.2 B/P (MAP) 122/75 Pulse Ox 16 O2 Delivery Room Air Blood Pressure Mean: 91 Diagnostic Imaging Diagonstic Imaging: CT Plain Films/CT/US/NM/MRI: pelvis Comments FINDINGS: There is no fracture seen in the proximal femurs bilaterally. No subluxation or dislocation at the hip joints. There is normal joint alignment also at the SI joints. Deformities in the inferior aspect of the coccyx and at the S4 level are seen on the sagittal images which may relate to an old injury. No acute fracture is identified. The soft tissues appear grossly unremarkable. IMPRESSION: No acute fracture is seen. Dictated by: Dictated on workstation # [id number] Reviewed: Reviewed by Me (radiology report reviewed by me) Departure Communication (Admissions) Progress Notes Diagnostic findings discussed with the patient. Patient reports feeling better with medications. Plan for discharge to home. Impression Impression: Primary Impression: Contusion of sacrum Qualified Codes: S30.0XXA - Contusion of lower back and pelvis, initial encounter Disposition: HOME, SELF-CARE Condition: Improved Departure-Patient Inst. Decision time for Depature: 15:17 Referrals: NO,LOCAL PHYSICIAN (PCP/Family) Primary Care Physician Patient Instructions: Contusion (DC) Add. Discharge Instructions: All discharge instructions reviewed with patient and/or family. Voiced understanding. Tylenol extra strength lcld-pai-cfmpuvs as directed for pain. Ibuprofen 800 mg by mouth every 8 hours as needed for pain. Ice packs or heating pads as needed for pain. Avoid sitting on hard surfaces. Follow-up with your primary care physician if no improvement in symptoms in 7-10 days. Return to the emergency department for worsened pain, numbness, weakness, bowel incontinence, bladder incontinence, or any other concerns. Scripts Ketoprofen (Ketoprofen) 50 Mg Capsule 50 MG PO TID Y for pain, #15 CAP 0 Refills Prov: MARITZA MOREAU 03/26/17 MARITZA MOREAU Mar 26, 2017 14:21
--- NOTE | 2017-03-26 15:01 | Diagnostic Imaging Report ---
PROCEDURE: CT pelvis without contrast. TECHNIQUE: Multiple contiguous axial images were obtained through the pelvis without the use of intravenous contrast. Sagittal and coronal reformations were performed. INDICATION: Fall. FINDINGS: There is no fracture seen in the proximal femurs bilaterally. No subluxation or dislocation at the hip joints. There is normal joint alignment also at the SI joints. Deformities in the inferior aspect of the coccyx and at the S4 level are seen on the sagittal images which may relate to an old injury. No acute fracture is identified. The soft tissues appear grossly unremarkable. IMPRESSION: No acute fracture is seen. Dictated by: Dictated on workstation # [id number]
[2017-03-26] MEDS ORDERED: KETO50CA PO (15:19)
[2017-03-26 15:44] VITALS: BP 122/75
== END 2017-03-26 15:44 | disposition home or self-care (01) ==
LOC: EDUNIT# 13:49 → ER 13:52
DX: S30.0XXA Contusion of lower back and pelvis, initial encounter (principal); F90.9 Attention-deficit hyperactivity disorder, unspecified type; F12.90 Cannabis use, unspecified, uncomplicated; Z87.81 Personal history of (healed) traumatic fracture; Z87.42 Personal history of other diseases of the female genital tract; W10.9XXA Fall (on) (from) unspecified stairs and steps, initial encounter
CPT/HCPCS: 72192; 84703; 96372; 99284

== ENCOUNTER 2017-06-09 10:08 | Emergency (ER) | payer SELFPAY ==
[~2017-06-09] VITALS: Ht 182.9 cm; Wt 95.3 kg
[~2017-06-09 10:08] MED LIST changes: +KETO50CA PO
--- OUTSIDE RECORDS SUMMARY | 2017-06-09 10:17 | XMS REPORT ---
Author Author Eliza CONSTANTINO Organization [facility] Address [address] [place] [address] Care Team Providers Care Metal Bumper Name Role Phone amrnieCONSTANTINO Sultana Unavailable PROBLEMS Type Condition ICD9-CM Code [id number] Code Onset Dates Condition Status SNOMED Code Problem Counseling for control, oral contraceptives Z30.9 Active 846842369 Problem Sleep disorder, unspecified G47.9 Active 58975912 Problem Elevated hemoglobin A1c R73.09 Active 565904988 Problem Other malaise R53.81 Active 063457476 Problem Attention deficit disorder without mention of hyperactivity F90.0 Active 963917855 Problem Abnormal menstrual periods N92.6 Active 359185553 Problem Irregular menstrual bleeding N92.6 Active 99099727 Problem Hair thinning L65.9 Active 891670800 Problem Oral contraceptive pill surveillance Z30.41 Active 468395446 Problem Acanthosis nigricans L83 Active 047459130 Problem Obesity (BMI 30-39.9) E66.9 Active 483271208 ALLERGIES Substance Reaction Event Type Date Status Penicillin V Potassium Unknown Drug Allergy Aug, Active SOCIAL HISTORY Never Assessed PLAN OF CARE Activity Details Follow Up 3 Months Reason: VITAL SIGNS Height 72 in 2016-09-05 Weight 242.6 lbs 2016-09-05 Heart Rate 80 bpm 2016-09-05 Respiratory Rate 20 2016-09-05 BMI 32.90 kg/m2 2016-09-05 Blood pressure systolic 110 mmHg 2016-09-05 Blood pressure diastolic 68 mmHg 2016-09-05 MEDICATIONS Medication Instructions Dosage Frequency Start Date End Date Duration Status Methylphenidate HCl 20 MG Orally Twice a day 1 tablet 12h 16 Aug, 2016 Sep, 30 days Active RESULTS Name Result Date Reference Range URINE DRUG SCREEN (IN HOUSE) 2016-09-05 Lot # [id number] Exp date 2018-04 Control + COCAINE Negative AMPH Negative MTD Negative THC Positive OPIATE Negative BENZO Negative PCP Negative BAR Negative OXY Negative MAMP Negative TCA Negative BUP Not Tested MDMA Negative PROCEDURES Procedure Date Ordered Result Body Site DRUG TEST PRSMV DIR OPT OBS September 05, 2016 IMMUNIZATIONS No Known Immunizations MEDICAL (GENERAL) HISTORY Type Description Date Medical History ADHD Medical History History of genital warts Medical History Family history of diabetes mellitus Medical History Family history of [place]'s chorea Medical History Family history of heart disease Surgical History pilonidal cyst excision jun 2016
--- OUTSIDE RECORDS SUMMARY | 2017-06-09 10:17 | XMS REPORT ---
Author Author JESSICA MERCHANT Organization [facility] Address [address] [place] [address] Care Team Providers Care Multimedia Instructional Designer Name Role Phone SHONDA JESSICA Unavailable PROBLEMS Type Condition ICD9-CM Code ZOI81-CP Code Onset Dates Condition Status SNOMED Code Problem Counseling for control, oral contraceptives Z30.9 Active 277526706 Problem Sleep disorder, unspecified G47.9 Active 24223975 Problem Elevated hemoglobin A1c R73.09 Active 339865025 Problem Other malaise R53.81 Active 411300522 Problem Attention deficit disorder without mention of hyperactivity F90.0 Active 927580183 Problem Abnormal menstrual periods N92.6 Active 413320354 Problem Irregular menstrual bleeding N92.6 Active 33454722 Problem Hair thinning L65.9 Active 017488301 Problem Oral contraceptive pill surveillance Z30.41 Active 320742424 Problem Acanthosis nigricans L83 Active 590966345 Problem Obesity (BMI 30-39.9) E66.9 Active 393674180 ALLERGIES No Information SOCIAL HISTORY Never Assessed PLAN OF CARE VITAL SIGNS MEDICATIONS Unknown Medications RESULTS No Results PROCEDURES No Known procedures IMMUNIZATIONS No Known Immunizations MEDICAL (GENERAL) HISTORY Type Description Date Medical History ADHD Medical History History of genital warts Medical History Family history of diabetes mellitus Medical History Family history of [place]as[place]'s chorea Medical History Family history of heart disease Surgical History pilonidal cyst excision jun 2016
--- OUTSIDE RECORDS SUMMARY | 2017-06-09 10:18 | XMS REPORT | Continuity of Care Document ---
Author Author [facility] Address Unknown Phone Unavailable Allergies Active Description Code Type Severity Reaction Onset Reported/Identified Relationship to Patient Clinical Status Yes Penicillins Drug Allergy 01/25/2009 Yes Penicillins Drug Allergy N/A N/A 01/25/2009 Medications There is no data. Problems Date Dx Coded Attending Type Code [...] Contraception 10/17/2010 V65.45 Std Counseling 10/17/2010 V72.31 Fish Drier Exam, Routine 10/17/2010 V74.5 Std Screen 10/17/2010 V25.01 Contraception Counseling- Oral Contraception 10/17/2010 V65.45 Std Counseling 10/17/2010 V72.31 Fish Drier Exam, Routine 10/17/2010 V74.5 Std Screen 10/17/2010 JOAQUIN GOMES DO V25.01 Contraception Counseling- Oral Contraception 10/17/2010 GOMES DO, JOAQUIN K V65.45 Std Counseling 10/17/2010 GOMES DO JOAQUIN K V72.31 Fish Drier Exam, Routine 10/17/2010 GOMES DO, JOAQUIN K V74.5 Std Screen 10/17/2010 FRANCO BALLESTEROS APRN V25.01 Contraception Counseling- Oral Contraception 10/17/2010 FRANCO BALLESTEROS APRN V65.45 Std Counseling 10/17/2010 FRANCO BALLESTEROS APRN V72.31 Fish Drier Exam, Routine 10/17/2010 FRANCO BALLESTEROS APRN V74.5 Std Screen 10/17/2010 JESICA RODRIGUEZMario MARKELL WALLIS V25.01 Contraception Counseling- Oral Contraception 10/17/2010 JESICA RODRIGUEZMario MARKELL WALLIS V65.45 Std Counseling 10/17/2010 JESICA RODRIGUEZMario MARKELL WALLIS V72.31 Fish Drier Exam, Routine 10/17/2010 JESICA RODRIGUEZMario MARKELL WALLIS V74.5 Std Screen 10/17/2010 JESICA RODRIGUEZMario MARKELL WALLIS V25.01 Contraception Counseling- Oral Contraception 10/17/2010 JESICA RODRIGUEZMario MARKELL WALLIS V65.45 Std Counseling 10/17/2010 JESICA RODRIGUEZMario MARKELL WALLIS V72.31 Fish Drier Exam, Routine 10/17/2010 JESICA RODRIGUEZMario MARKELL WALLIS V74.5 Std Screen 10/17/2010 JESICA RODRIGUEZMario MARKELL WALLIS V25.01 Contraception Counseling- Oral Contraception 10/17/2010 JESICA RODRIGUEZMario MARKELL WALLIS V65.45 Std Counseling 10/17/2010 JESICA RODRIGUEZMario MARKELL WALLIS V72.31 Fish Drier Exam, Routine 10/17/2010 JESICA RODRIGUEZMario MARKELL WALLIS V74.5 Std Screen 10/17/2010 GOMES DO JOAQUIN K V25.01 Contraception Counseling- Oral Contraception 10/17/2010 GOMES DO, JOAQUIN K V65.45 Std Counseling 10/17/2010 GOMES DO, JOAQUIN K V72.31 Fish Drier Exam, Routine 10/17/2010 GOMES DO JOAQUIN K V74.5 Std Screen 10/17/2010 GIAN SANTAMARIA APRN A V25.01 Contraception Counseling- Oral Contraception 10/17/2010 GIAN SANTAMARIA APRN A V65.45 Std Counseling 10/17/2010 HINA GEOLOGICAL MANAGER, GIAN A V72.31 Fish Drier Exam, Routine 10/17/2010 HINAGERMAN LARKIN, GIAN A V74.5 Std Screen 10/17/2010 FRANCO BALLESTEROS APRN V25.01 Contraception Counseling- Oral Contraception 10/17/2010 FRANCO BALLESTEROS APRN V65.45 Std Counseling 10/17/2010 FRANCO BALLESTEROS APRN V72.31 Fish Drier Exam, Routine 10/17/2010 FRANCO BALLESTEROS APRN V74.5 Std Screen 10/17/2010 GOMES DO JOAQUIN K V25.01 Contraception Counseling- Oral Contraception 10/17/2010 GOMES DO JOAQUIN K V65.45 Std Counseling 10/17/2010 GOMES DO, JOAQUIN K V72.31 Fish Drier Exam, Routine 10/17/2010 GOMES DO, JOAQUIN K V74.5 Std Screen 10/17/2010 JUAN PABLO LARKIN JOSIE R V25.01 Contraception Counseling- Oral Contraception 10/17/2010 JUAN PABLO LARKIN JOSIE R V65.45 Std Counseling 10/17/2010 JUAN PABLO LARKIN JOSIE R V72.31 Fish Drier Exam, Routine 10/17/2010 JUAN PABLO LARKIN JOSIE R V74.5 Std Screen 10/17/2010 MYA LARKIN RONNIE V25.01 Contraception Counseling- Oral Contraception 10/17/2010 MYA LARKIN RONNIE V65.45 Std Counseling 10/17/2010 MYA GEOLOGICAL MANAGER, RONNIE V72.31 Fish Drier Exam, Routine 10/17/2010 MYA LARKIN, RONNIE V74.5 Std Screen 07/23/2011 780.50 SLEEP DISTURBANCE, UNSPECIFIED 07/23/2011 780.79 Malaise And Fatigue 07/23/2011 799.22 Irritibility 07/23/2011 780.50 SLEEP DISTURBANCE, UNSPECIFIED 07/23/2011 780.79 Malaise And Fatigue 07/23/2011 799.22 Irritibility 07/23/2011 GOMES DO JOAQUIN K 780.50 SLEEP DISTURBANCE, UNSPECIFIED 07/23/2011 GOMES DO, JOAQUIN K 780.79 Malaise And Fatigue 07/23/2011 GOMES DO, JOAQUIN K 799.22 Irritibility 07/23/2011 FRANCO BALLESTEROS APRN 780.50 SLEEP DISTURBANCE, UNSPECIFIED 07/23/2011 FRANCO BALLESTEROS APRN 780.79 Malaise And Fatigue 07/23/2011 FRANCO BALLESTEROS APRN 799.22 Irritibility 07/23/2011 MOONEY GEOLOGICAL MANAGER, MARKELL WALLIS 780.50 SLEEP DISTURBANCE, UNSPECIFIED 07/23/2011 MOONEY GEOLOGICAL MANAGER, MRAKELL WALLIS 780.79 Malaise And Fatigue 07/23/2011 MOONEY GEOLOGICAL MANAGER, MARKELL WALLIS 799.22 Irritibility 07/23/2011 MOONEY GEOLOGICAL MANAGER, MARKELL WALLIS 780.50 SLEEP DISTURBANCE, UNSPECIFIED 07/23/2011 MOONEY GEOLOGICAL MANAGER, MARKELL WALLIS 780.79 Malaise And Fatigue 07/23/2011 MOONEY GEOLOGICAL MANAGER, MARKELL WALLIS 799.22 Irritibility 07/23/2011 MOONEY GEOLOGICAL MANAGER, MARKELL WALLIS 780.50 SLEEP DISTURBANCE, UNSPECIFIED 07/23/2011 MOONEY GEOLOGICAL MANAGER, MARKELL WALLIS 780.79 Malaise And Fatigue 07/23/2011 JESICA GEOLOGICAL MANAGER, MARKELL WALLIS 799.22 Irritibility 07/23/2011 GOMES DO, JOAQUIN K 780.50 SLEEP DISTURBANCE, UNSPECIFIED 07/23/2011 GOMES DO, JOAQUIN K 780.79 Malaise And Fatigue 07/23/2011 GOMES DO, JOAQUIN K 799.22 Irritibility 07/23/2011 HINAGIAN Martin APRN A 780.50 SLEEP DISTURBANCE, UNSPECIFIED 07/23/2011 HINAVANDANA Martin APRNIDI A 780.79 Malaise And Fatigue 07/23/2011 HINAMario LARKIN GIAN A 799.22 Irritibility 07/23/2011 FRANCO BALLESTEROS APRN 780.50 SLEEP DISTURBANCE, UNSPECIFIED 07/23/2011 FRANCO BALLESTEROS APRN 780.79 Malaise And Fatigue 07/23/2011 FRANCO BALLESTEROS APRN 799.22 Irritibility 07/23/2011 GOMES DO, JOAQUIN K 780.50 SLEEP DISTURBANCE, UNSPECIFIED 07/23/2011 GOMES DO, JOAQUIN K 780.79 Malaise And Fatigue 07/23/2011 GOMES DO, JOAQUIN K 799.22 Irritibility 07/23/2011 JUAN PABLO LARKIN JOSIE R 780.50 SLEEP DISTURBANCE, UNSPECIFIED 07/23/2011 KELLIE ALMEIDA APRNINA R 780.79 Malaise And Fatigue 07/23/2011 JOSIE ALMEIDA APRN R 799.22 Irritibility 07/23/2011 RONNIE ROQUE APRN [...] 463 ACUTE TONSILLITIS 12/13/2011 JOSIE ALMEIDA APRN R 463 ACUTE TONSILLITIS 12/13/2011 RONNIE ROQUE APRN [...] K 314.00 ADD 06/02/2013 JOSIE ALMEIDA APRN R 314.00 ADD 06/02/2013 MYA LARKIN, RONNIE 314.00 ADD 07/09/2013 FRANCO BALLESTEROS APRN 465.9 UPPER RESPIRATORY INFECTION 07/09/2013 JESICA GEOLOGICAL MANAGER, MARKELL WALLIS 465.9 UPPER RESPIRATORY INFECTION 07/09/2013 MOONEY GEOLOGICAL MANAGER, MARKELL WALLIS 465.9 UPPER RESPIRATORY INFECTION 07/09/2013 JESICA GEOLOGICAL MANAGER, MARKELL WALLIS 465.9 UPPER RESPIRATORY INFECTION 07/09/2013 JOAQUIN GOMES DO K 465.9 UPPER RESPIRATORY INFECTION 07/09/2013 HINA LARKIN, GIAN A 465.9 UPPER RESPIRATORY INFECTION 07/09/2013 FRANCO [...] RONNIE ROQUE APRN 461.9 SINUSITIS ACUTE 06/09/2014 VANDANA SANTAMARIA APRNIDI A V25.01 CONTRACEPTION - ORAL CONTRACEPTION 06/09/2014 FRANCO BALLESTEROS APRN V25.01 CONTRACEPTION - ORAL CONTRACEPTION 06/09/2014 JOAQUIN GOMES DO K V25.01 CONTRACEPTION - ORAL CONTRACEPTION 06/09/2014 JUAN PABLO LARKIN, JOSIE R V25.01 CONTRACEPTION - ORAL CONTRACEPTION 06/09/2014 RAGHAV ROQUE APRNETTE V25.01 CONTRACEPTION - ORAL CONTRACEPTION 09/13/2014 SADAF GOMES DOA K 462 PHARYNGITIS ACUTE 09/13/2014 KELLIE ALMEIDA APRNINA R 462 PHARYNGITIS ACUTE 09/13/2014 RAGHAV ROQUE APRNETTE 462 PHARYNGITIS ACUTE 09/27/2014 JOSIE ALMEIDA APRN R 388.70 OTALGIA UNSPECIFIED 09/27/2014 RONNIE ROQUE APRN 388.70 OTALGIA UNSPECIFIED Procedures Code [place] [address] URINE DRUG SCREEN (IN-HOUSE ) 06/02/2013 97406 TEST, URINE (IN- HOUSE) 06/09/2014 12175 STREP A (IN-HOUSE) 09/13/2014 Results There is no data. Encounters ACCT No. Visit Date/Time Discharge Status Pt. Type Provider Facility Loc./Unit Complaint [id number] 10/04/2014 14:33:00 10/04/2014 23:59:59 CLS Outpatient RAGHAV ROQUE APRNETTE [id number] 09/27/2014 17:08:00 09/27/2014 23:59:59 CLS Outpatient JUAN PABLO GEOLOGICAL MANAGERJOSIE Martin [id number] 09/19/2014 12:19:00 09/19/2014 23:59:59 CLS Outpatient JOAQUIN GOMES DO [id number] 07/02/2014 12:56:00 07/02/2014 23:59:59 CLS Outpatient FRANCO BALLESTEROS APRN [id number] 06/09/2014 14:05:00 06/09/2014 23:59:59 CLS Outpatient HINA RODRIGUEZGIAN Martin [id number] 04/19/2014 18:13:00 04/19/2014 23:59:59 CLS Outpatient JOAQUIN GOMES DO [id number] 02/15/2014 16:24:00 02/15/2014 23:59:59 CLS Outpatient JESICA RODRIGUEZNMARKELL [id number] 01/07/2014 14:13:00 01/07/2014 23:59:59 CLS Outpatient JESICA RODRIGUEZNMARKELL [id number] 08/27/2013 10:41:00 08/27/2013 23:59:59 CLS Outpatient MARKELL MOONEY APRN [id number] 07/09/2013 15:57:00 07/09/2013 23:59:59 CLS Outpatient FRANCO BALLESTEROS APRN [id number] 06/02/2013 11:03:00 06/02/2013 23:59:59 [place] [id number] 12/13/2011 09:19:00 12/13/2011 23:59:59 CLS Outpatient [id number] 12/13/2011 09:19:00 Document Registration
[2017-06-09] MEDS ORDERED: AZIT250T12 PO (11:02)
[2017-06-09] MEDS ORDERED: ONDA4TAB8 SL (11:02)
--- NOTE | 2017-06-09 11:02 | ED General ---
General Chief Complaint: Cough/Cold/Flu Symptoms Stated Complaint: TONSILS SWOLLEN, SOA, FLU SYMPTOMS Nursing Triage Note: AMB TO ROOM HAS BEEN SICK SINCE SAT WITH COUGH CONGESTION AND BODY ACHES HAS NOT TAKEN ANY PAIN MEDS. HAD APPOINTMENT AT TODAY AT [facility],BUT FELT SHE COULD NOT WAIT TILL THAN. Nursing Sepsis Screen: No Definite Risk Source of Information: Patient Exam Limitations: No Limitations History of Present Illness Time Seen by Provider: 10:13 Initial Comments This 26-year-old young lady presents to the emergency room with complaints of fairly intense sore throat, body aching, cold sweats, nausea, feeling fatigued, headache, and dizziness. Symptoms started on June 07. Rapid strep test obtained by nursing staff was positive. Allergies and Home Medications Allergies Coded Allergies: Penicillins (Unverified Allergy, Unknown, 07/07/16) Home Medications Azithromycin 250 Mg Tablet, 250 MG PO UD, #6 TAKE 2 TABLETS ON DAY ONE THEN TAKE 1 TABLET DAILY FOR FOUR MORE DAYS Prescribed by: JOHNNY GAVIN on 06/09/17 1102 Ibuprofen 800 Mg Tablet, 800 MG PO Q8H PRN for PAIN, #30 Prescribed by: WILLIAM WASHINGTON on 11/04/16 1509 Ketoprofen 50 Mg Capsule, 50 MG PO TID PRN for pain, #15 Ref 0 Prescribed by: MARITZA MOREAU on 03/26/17 1519 Methylphenidate HCl 20 Mg Tablet, 20 MG PO DAILY, (Reported) Ondansetron 4 Mg Tab.rapdis, 4 MG SL Q4H PRN for NAUSEA/VOMITING-1ST LINE, #10 Prescribed by: JOHNNY GAVIN on 06/09/17 1102 Constitutional: see HPI EENTM: see HPI Respiratory: no symptoms reported Cardiovascular: no symptoms reported Gastrointestinal: no symptoms reported Genitourinary: no symptoms reported Musculoskeletal: no symptoms reported Skin: no symptoms reported Psychiatric/Neurological: No Symptoms Reported Hematologic/Lymphatic: No Symptoms Reported Past Vqpzays-Ewkjuj-Pjzvbl Hx Patient Social History Alcohol Use: Occasionally Uses Number of Drinks Today: II Alcohol Beverage of Choice: Other Recreational Drug Use: No Drug of Choice: Marijuana Smoking Status: Never a Smoker 2nd Hand Smoke Exposure: No Recent Foreign Travel: No Contact w/Someone Who Travel: No Recent Infectious Disease Expo: No Recent Hopitalizations: No Immunizations Up To Date Tetanus Booster (TDap): Less than 5yrs PED Vaccines UTD: Yes Date of Influenza Vaccine: Jun 01, 2016 Seasonal Allergies Seasonal Allergies: No Surgeries History of Surgeries: Yes (PILONIDAL CYST/ABSCESS REMOVED) Respiratory History of Respiratory Disorde: No Cardiovascular History of Cardiac Disorders: No Neurological History of Neurological Disord: No Reproductive System : No Hx Reproductive Disorders: Yes (IRREGULAR PERIODS) Female Reproductive Disorders: Menstrual Problems, Polycystic Ovarian Dis Genitourinary History of Genitourinary Disor: No Gastrointestinal History of Gastrointestinal Di: No Musculoskeletal History of Musculoskeletal Dis: Yes (HX LEFT ARM FX) Musculoskeletal Disorders: Fractures Endocrine History of Endocrine Disorders: No HEENT History of HEENT Disorders: No Cancer History of Cancer: No Psychosocial History of Psychiatric Problem: Yes Behavioral Health Disorders: ADD/ADHD Integumentary History of Skin or Integumenta: No Blood Transfusions History of Blood Disorders: No Family Medical History Significant Family History: No Pertinent Family Hx Physical Exam Vital Signs Vital Sign - Last 12Hours 06/09/17 06/09/17 10:14 11:13 Temp 98.6 Pulse 110 Resp 18 B/P (MAP) 122/73 (89) Pulse Ox 99 O2 Delivery Room Air Capillary Refill : Less Than 3 Seconds General Appearance: No Apparent Distress, WD/WN HEENT: PERRL/EOMI, Normal ENT Inspection, Tonsillar Exudate, Tonsillar Enlargement, Other (White patches on tonsils) Respiratory: Lungs Clear, Normal Breath Sounds, No Accessory Muscle Use, No Respiratory Distress Cardiovascular: Regular Rate, Rhythm, No Edema, No Murmur Extremity: Normal Inspection, No Pedal Edema Neurologic/Psychiatric: Alert, Oriented x3, No Motor/Sensory Deficits, Normal Mood/Affect, furniture sander II-XII Norm as Tested Skin: Normal Color, Warm/Dry Progress/Results/Core Measures Suspected Sepsis Recent Fever Within 48 Hours: No Infection Criteria Present: None New/Unexplained Altered Menta: No Sepsis Screen: No Definite Risk Sepsis Diagnosis: SIRS Temperature:98.6 Pulse: 110 Respiratory Rate: 18 Blood Pressure 122 /73 Mean: 89 Results/Orders Lab Results Laboratory Tests Test 06/09/17 10:20 Range/Units Group A Streptococcus Screen POSITIVE H NEGATIVE Micro Results Microbiology 06/09/17 Influenza Types A,B Antigen ([facility]) - Final, Complete My Orders Orders - JOHNNY MENA MD Rapid Strep A Screen (06/09/17 10:13) Influenza A And B Antigens (06/09/17 10:13) Vital Signs/I&O Vital Sign - Last 12Hours 06/09/17 06/09/17 10:14 11:13 Temp 98.6 98.6 Pulse 110 110 Resp 18 18 B/P (MAP) 122/73 (89) Pulse Ox 99 O2 Delivery Room Air Capillary Refill : Less Than 3 Seconds Blood Pressure Mean: 89 Departure Impression Impression: Primary Impression: Strep pharyngitis Disposition: 01 HOME, SELF-CARE Condition: Stable Departure-Patient Inst. Referrals: NO,LOCAL PHYSICIAN (PCP/Family) Primary Care Physician Patient Instructions: Strep Throat (DC) Add. Discharge Instructions: Drink plenty of clear liquids. Gradually advance your diet with bland soft foods as tolerated. You may take ibuprofen up to 600 mg every 6 hours as needed for pain and fever. Add Tylenol (acetaminophen up to 1000 mg every 6 hours as needed for additional relief. Complete your antibiotic as prescribed. You may fill the Zofran (ondansetron) if needed to control nausea. Return to emergency room if symptoms worsen. All discharge instructions reviewed with patient and/or family. Voiced understanding. Scripts Ondansetron (Zofran Odt) 4 Mg Tab.rapdis 4 MG SL Q4H Y for NAUSEA/VOMITING-1ST LINE, #10 TAB Prov: JOHNNY MENA MD 06/09/17 Azithromycin (Azithromycin) 250 Mg Tablet 250 MG PO UD, #6 TAB TAKE 2 TABLETS ON DAY ONE THEN TAKE 1 TABLET DAILY FOR FOUR MORE DAYS Prov: JOHNNY MENA MD 06/09/17 JOHNNY MENA MD Jun 09, 2017 11:02
[2017-06-09 11:13] VITALS: BP 122/73
== END 2017-06-09 11:13 | disposition home or self-care (01) ==
LOC: EDUNIT# 10:08 → ER 10:12
DX: J02.0 Streptococcal pharyngitis (principal); F90.9 Attention-deficit hyperactivity disorder, unspecified type; F12.90 Cannabis use, unspecified, uncomplicated; Z87.81 Personal history of (healed) traumatic fracture; Z87.42 Personal history of other diseases of the female genital tract
CPT/HCPCS: 87430; 87804; 99282